=== PATIENT | female | born 1945 | race Caucasian/White ===

== ENCOUNTER → 2018-01-08 08:05 | Outpatient (CLI) | payer MEDICARE, OTHER, SELFPAY ==
[2018-01-08 10:54] LABS: Anion Gap 8 (5-15); BUN 13 mg/dL (7-18); BUN/Creat Ratio 16.4 RATIO (10-20); Calcium,Total 8.7 mg/dL (8.5-10.1); Chloride 107 mmol/L (98-107); Cholesterol 227 mg/dL (200); EST Glomerular Filtration Rate 76 mL/min (>60); Est Glom Filt Rate - Afr Amer 92 mL/min (>60); Glucose 98 mg/dL (74-106); High Density Lipoprotein 45 mg/dL; Potassium 4.1 mmol/L (3.5-5.1); Sodium Level 140 mmol/L (136-145); Thyroid Stim Hormone (TSH) 0.55 uIU/mL (0.358-3.74); Triglycerides 327 mg/dL; Very Low Density Lipoprotein 65 mg/dL (5-40)
== END ==
PROVIDERS: Family Provider Family Medicine; PCP Family Medicine; Visit Provider Family Medicine
DX: E03.9 Hypothyroidism, unspecified (principal); K58.9 Irritable bowel syndrome, unspecified; E78.00 Pure hypercholesterolemia, unspecified
CPT/HCPCS: 36415; 80048; 80061; 84443

== ENCOUNTER → 2019-01-18 08:31 | Outpatient (CLI) | payer MEDICARE, OTHER, SELFPAY ==
[2019-01-18 10:21] LABS: Anion Gap 6 (5-15); BUN 16 mg/dL (7-18); BUN/Creat Ratio 17.6 RATIO (10-20); Calcium,Total 8.9 mg/dL (8.5-10.1); Chloride 107 mmol/L (98-107); Cholesterol 245 mg/dL (200); Creatinine, Serum 0.91 mg/dL (0.55-1.02); EST Glomerular Filtration Rate 65 mL/min (>60); Est Glom Filt Rate - Afr Amer 79 mL/min (>60); Glucose 102 mg/dL (74-106); High Density Lipoprotein 45 mg/dL; Potassium 4.3 mmol/L (3.5-5.1); Sodium Level 140 mmol/L (136-145); Thyroid Stim Hormone (TSH) 1.12 uIU/mL (0.358-3.74); Triglycerides 215 mg/dL; Very Low Density Lipoprotein 43 mg/dL (5-40)
== END ==
PROVIDERS: Family Provider Family Medicine; PCP Family Medicine; Referring Provider Family Medicine; Visit Provider Family Medicine
DX: G43.909 Migraine, unspecified, not intractable, without status migrainosus (principal); E03.9 Hypothyroidism, unspecified; E78.00 Pure hypercholesterolemia, unspecified
CPT/HCPCS: 36415; 80048; 80061; 84443

== ENCOUNTER → 2019-02-25 | Outpatient (CLI) | payer MEDICARE, OTHER, SELFPAY ==
--- NOTE | 2019-02-25 12:57 | ECHOD_ITS ---
Reason For Study: MVP Procedure This was a 2D Doppler, Color Flow transthoracic echocardiogram. The exam was of adequate technical quality. Exam performed in department. Left Ventricle Normal LV size. Left ventricular systolic function is normal. The estimated ejection fraction is 65 %. No evidence for diastolic dysfunction. No regional wall motion abnormalities noted. Right Ventricle Normal RV size. Normal systolic function. Atria Normal left atrium. Normal right atrium. No doppler evidence for ASD. Mitral Valve There is no mitral annular calcification. Mild mitral valve prolapse, posterior leaflet. Mild (1+) eccentric mitral valve insufficiency. Tricuspid Valve Normal tricuspid valve. Mild tricuspid valve insufficiency. Right ventricular systolic pressure estimated to be 30 mmHg. Aortic Valve The aortic valve is not well visualized. Mild (1+) aortic valve insufficiency. Pulmonic Valve The pulmonic valve is not well visualized. Great Vessels Normal sized aortic root. Pericardium/Pleural No pericardial effusion. MMode/2D Measurements & Calculations LVIDd: 4.5 cm IVSd: 0.96 cm Ao root diam: 3.1 cm LVIDs: 2.9 cm LVPWd: 0.76 cm LA dimension: 3.5 cm RVDd: 3.1 cm FS: 37.2 % LAV(MOD-bp): 41.0 ml LA A4 area: 14.4 cm2 RA A4 area: 9.7 cm2 LAV(MOD-bp) Indexed: 23.3 ml/m2 LAV(MOD-sp2): 48.1 ml LAV(MOD-sp4): 33.9 ml Time Measurements MV dec time: 0.23 sec Doppler Measurements & Calculations MV E max volodymyr: 65.4 cm/sec Lat Peak E' Volodymyr: 8.8 cm/sec Med Peak E' Volodymyr: 6.5 cm/sec MV A max volodymyr: 68.3 cm/sec E/E' lat: 7.4 E/E' med: 10.1 MV E/A: 0.96 MV V2 max: 79.6 cm/sec MV P1/2t max volodymyr: 80.3 cm/sec Ao V2 max: 101.9 cm/sec MV max P.5 mmHg MV P1/2t: 83.7 msec Ao max P.2 mmHg MV V2 mean: 43.8 cm/sec MV dec slope: 280.8 cm/sec2 MV mean P.90 mmHg MVA(P1/2t): 2.6 cm2 MV V2 VTI: 30.3 cm AI max volodymyr: 401.8 cm/sec LV V1 max: 78.8 cm/sec MR max volodymyr: 551.0 cm/sec AI max P.6 mmHg LV V1 max P.5 mmHg MR max P.4 mmHg MR mean volodymyr: 405.7 cm/sec AI dec slope: 217.2 cm/sec2 MR mean P.0 mmHg AI P1/2t: 541.8 msec MR VTI: 210.0 cm PA V2 max: 79.6 cm/sec TR max volodymyr: 261.6 cm/sec TR max P.4 mmHg Interpretation Summary Left ventricular systolic function is normal. The estimated ejection fraction is 65 %. Mild mitral valve prolapse, posterior leaflet Mild (1+) eccentric mitral valve insufficiency. Mild tricuspid valve insufficiency. Mild (1+) aortic valve insufficiency. Right ventricular systolic pressure estimated to be 30 mmHg. No evidence for diastolic dysfunction. Ordering Physician: Massimo Marquez Referring Physician: Massimo Marquez Performed By: Italo Truong RCS
== END | disposition home or self-care (01) ==
LOC: CVS 12:53
PROVIDERS: Family Provider Family Medicine; PCP Family Medicine; Referring Provider Family Medicine; Visit Provider Family Medicine
DX: I34.1 Nonrheumatic mitral (valve) prolapse (principal)
CPT/HCPCS: 93306

== ENCOUNTER → 2019-08-13 | Outpatient (CLI) | payer MEDICARE, OTHER, SELFPAY ==
[2019-02-28 10:16] VITALS: BMI 24.0
[2019-08-13 12:38] LABS: Absolute Lymphocyte Count 2.07 X10^3/uL (0.83-4.51); Absolute Neutrophil Count 2.8 X10^3/uL (2.0-7.7); Basophil# 0.06 X10^3/uL; Basophil% 1.1 % (0-1); Eosinophil# 0.14 X10^3/uL; Eosinophils% 2.5 % (0-5); Hematocrit 42.9 % (37-47); Hemoglobin 13.7 g/dL (12.0-15.0); Lymphocyte # 2.07 X10^3/ul (4.0); Lymphocyte % 36.7 % (19-41); Mean Corp Hgb Conc 31.9 g/dL (32-36); Mean Corpuscular Hgb 29.5 pg (27.0-32.0); Mean Corpuscular Volume 92.3 fL (81-99); Mean Platelet Vol. 11.4 fl (6.2-12.0); Monocyte# 0.59 X10^3/uL; Monocyte% 10.5 % (0-10); NRBC Flagged by Analyzer 0 % (0-5); Neutrophil # 2.76 X10^3/uL (2.7-7.7); Neutrophil % 48.8 % (47-70); Platelet Count 167 K/mm3 (150-450); RBC Distribution Width CV 12.5 % (11.6-14.6); RBC Distribution Width SD 42.6 fl (35.1-43.9); Red Blood Count 4.65 M/mm3 (4.2-5.4); White Blood Count 5.6 K/mm3 (4.4-11.0)
[2019-08-13 12:48] LABS: Amphetamine Urine VISTA NEGATIVE (<1000 ng/mL); Barbiturate Urine VISTA NEGATIVE (< 200 ng/mL); Benzodiazepine Urine VISTA NEGATIVE (< 200 ng/mL); Cocaine Urine VISTA NEGATIVE (< 300 ng/mL); Ecstacy Urine VISTA NEGATIVE (< 500 ng/mL); Methadone Urine VISTA NEGATIVE (< 300 ng/mL); PCP Urine VISTA NEGATIVE (< 25 ng/mL); THC Urine VISTA NEGATIVE (< 50 ng/mL); Vista UDS pH Range 6
[2019-08-13 13:10] LABS: ALB/GLOB Ratio 1.1 RATIO (0.9-2.4); AST(SGOT) 13 U/L (15-37); Alanine Aminotransfer ALT/SGPT 21 U/L (13-56); Albumin, Serum 3.8 g/dL (3.2-5.0); Alkaline Phosphatase 87 U/L (45-117); Anion Gap 4 (5-15); BUN 13 mg/dL (7-18); BUN/Creat Ratio 15.4 RATIO (10-20); Calcium,Total 9.4 mg/dL (8.5-10.1); Chloride 106 mmol/L (98-107); Cholesterol 239 mg/dL (200); Creatinine, Serum 0.84 mg/dL (0.55-1.02); EST Glomerular Filtration Rate 70 mL/min (>60); Est Glom Filt Rate - Afr Amer 85 mL/min (>60); Globulin 3.6 g/dL (2.2-4.2); Glucose 92 mg/dL (74-106); High Density Lipoprotein 47 mg/dL; Potassium 4.6 mmol/L (3.5-5.1); Protein, Total 7.4 g/dL (6.4-8.2); Sodium Level 138 mmol/L (136-145); T4 Free Direct 1.93 ng/dL (0.76-1.46); Thyroid Stim Hormone (TSH) 0.03 uIU/mL (0.358-3.74); Triglycerides 320 mg/dL; Very Low Density Lipoprotein 64 mg/dL (5-40)
== END | disposition home or self-care (01) ==
LOC: MFPLAB 09:48
PROVIDERS: Family Provider Family Medicine; PCP Family Medicine; Referring Provider Family Medicine; Visit Provider Family Medicine
DX: E03.9 Hypothyroidism, unspecified (principal); E78.00 Pure hypercholesterolemia, unspecified; G47.00 Insomnia, unspecified
CPT/HCPCS: 36415; 80053; 80061; 80307; 84439; 84443; 85025

== ENCOUNTER → 2019-11-14 09:25 | Outpatient (CLI) | payer MEDICARE, OTHER, SELFPAY ==
[2019-09-02 09:35] VITALS: BMI 24.3
[2019-11-14 10:43] LABS: T4 Free Direct 1.58 ng/dL (0.76-1.46); Thyroid Stim Hormone (TSH) 0.19 uIU/mL (0.358-3.74)
== END ==
PROVIDERS: Family Provider Family Medicine; PCP Family Medicine; Referring Provider Family Medicine; Visit Provider Family Medicine
DX: E03.9 Hypothyroidism, unspecified (principal)
CPT/HCPCS: 36415; 84439; 84443

== ENCOUNTER → 2019-11-26 08:03 | Outpatient (CLI) | payer MEDICARE, OTHER, SELFPAY ==
[2019-09-02 09:35] VITALS: BMI 24.3
--- NOTE | 2019-11-26 08:12 | BI_ITS ---
MAMMOGRAPHY - BILATERAL SCREENING REASON FOR EXAM: Female, 74 years old. Routine annual screening examination. PERTINENT HISTORY: Non-contributory. TECHNIQUE: Digital bilateral breast gonsalo (3D mammographic acquisition) in the CC and MLO projections. 2-D mediolateral oblique (MLO) and craniocaudad (CC) views of both breasts were obtained. CAD: Full Field Digital Mammography with Computer Added Detection was performed. COMPARISON: Comparison is made with prior abdomen examination dated July 31, 2018. FINDINGS: Breast Composition: There are scattered areas of fibroglandular density. There are no dominant masses or suspicious calcifications. No other significant abnormalities are identified. There has been no significant change since the prior study. BI/SCREEN MAMM (CAD) W/GONSALO BILAT IMPRESSION: Stable bilateral screening mammogram. Yearly follow-up mammogram recommended. (A) ASSESSMENT CATEGORY: BIRADS Category 1: Negative. A letter regarding these results will be sent to the patient by the facility within 30 days. Approximately 10% of breast cancers are not detected by mammography. A normal mammogram should not delay biopsy of a clinically suspicious abnormality. [id number] Electronically Signed: David Garcia, at 11:03 EST , Service support ,
== END ==
PROVIDERS: Family Provider Family Medicine; PCP Family Medicine; Referring Provider Family Medicine; Visit Provider Family Medicine
DX: Z12.31 Encounter for screening mammogram for malignant neoplasm of breast (principal)
CPT/HCPCS: 77063; 77067

== ENCOUNTER → 2020-03-17 | Outpatient (CLI) | payer MEDICARE, OTHER, SELFPAY ==
[2019-09-02 09:35] VITALS: BMI 24.3
[2020-03-17 10:15] LABS: Absolute Lymphocyte Count 2.06 X10^3/uL (0.83-4.51); Absolute Neutrophil Count 2.7 X10^3/uL (2.0-7.7); Basophil# 0.05 X10^3/uL; Basophil% 0.9 % (0-1); Eosinophil# 0.16 X10^3/uL; Eosinophils% 2.9 % (0-5); Hematocrit 40.9 % (37-47); Hemoglobin 13.4 g/dL (12.0-15.0); Lymphocyte # 2.06 X10^3/ul (4.0); Lymphocyte % 37.2 % (19-41); Mean Corp Hgb Conc 32.8 g/dL (32-36); Mean Corpuscular Hgb 30.5 pg (27.0-32.0); Mean Platelet Vol. 11.5 fl (6.2-12.0); Monocyte# 0.57 X10^3/uL; Monocyte% 10.3 % (0-10); NRBC Flagged by Analyzer 0 % (0-5); Neutrophil # 2.68 X10^3/uL (2.7-7.7); Neutrophil % 48.3 % (47-70); Platelet Count 218 K/mm3 (150-450); RBC Distribution Width CV 12.3 % (11.6-14.6); RBC Distribution Width SD 42.4 fl (35.1-43.9); White Blood Count 5.5 K/mm3 (4.4-11.0)
[2020-03-17 10:39] LABS: ALB/GLOB Ratio 1.1 RATIO (0.9-2.4); AST(SGOT) 18 U/L (15-37); Alanine Aminotransfer ALT/SGPT 24 U/L (13-56); Albumin, Serum 3.7 g/dL (3.2-5.0); Alkaline Phosphatase 86 U/L (45-117); Anion Gap 3 (5-15); BUN 17 mg/dL (7-18); BUN/Creat Ratio 19.7 RATIO (10-20); Chloride 111 mmol/L (98-107); Cholesterol 247 mg/dL (200); Creatinine, Serum 0.86 mg/dL (0.55-1.02); EST Glomerular Filtration Rate 69 mL/min (>60); Est Glom Filt Rate - Afr Amer 83 mL/min (>60); Globulin 3.3 g/dL (2.2-4.2); Glucose 105 mg/dL (74-106); High Density Lipoprotein 45 mg/dL; Potassium 4.1 mmol/L (3.5-5.1); Sodium Level 141 mmol/L (136-145); Thyroid Stim Hormone (TSH) 0.43 uIU/mL (0.358-3.74); Triglycerides 296 mg/dL; Very Low Density Lipoprotein 59 mg/dL (5-40)
== END | disposition home or self-care (01) ==
LOC: MFPLAB 08:28
PROVIDERS: PCP Family Medicine; Visit Provider Family Medicine
DX: E78.00 Pure hypercholesterolemia, unspecified (principal); E03.9 Hypothyroidism, unspecified
CPT/HCPCS: 36415; 80053; 80061; 84439; 84443; 85025

== ENCOUNTER → 2020-09-15 08:26 | Outpatient (CLI) | payer MEDICARE, OTHER, SELFPAY ==
[2020-08-31 10:40] VITALS: BMI 27.1
[2020-09-15 10:22] LABS: AST(SGOT) 21 U/L (15-37); Alanine Aminotransfer ALT/SGPT 31 U/L (13-56); Albumin, Serum 3.6 g/dL (3.2-5.0); Alkaline Phosphatase 73 U/L (45-117); Anion Gap 5 (5-15); BUN 15 mg/dL (7-18); BUN/Creat Ratio 14.7 RATIO (10-20); Calcium,Total 8.9 mg/dL (8.5-10.1); Chloride 109 mmol/L (98-107); Cholesterol 234 mg/dL (200); Creatinine, Serum 1.02 mg/dL (0.55-1.02); EST Glomerular Filtration Rate 56 mL/min (>60); Est Glom Filt Rate - Afr Amer 68 mL/min (>60); Globulin 3.5 g/dL (2.2-4.2); Glucose 104 mg/dL (74-106); High Density Lipoprotein 45 mg/dL; Potassium 4.5 mmol/L (3.5-5.1); Protein, Total 7.1 g/dL (6.4-8.2); Sodium Level 140 mmol/L (136-145); T4 Free Direct 1.39 ng/dL (0.76-1.46); Thyroid Stim Hormone (TSH) 2.65 uIU/mL (0.358-3.74); Triglycerides 270 mg/dL; Very Low Density Lipoprotein 54 mg/dL (5-40)
[2020-09-16 09:19] LABS: Hemoglobin A1c 5.6 % (3.8-5.6)
== END ==
PROVIDERS: PCP Family Medicine; Referring Provider Family Medicine; Visit Provider Family Medicine
DX: E78.00 Pure hypercholesterolemia, unspecified (principal); E03.9 Hypothyroidism, unspecified; R73.09 Other abnormal glucose
CPT/HCPCS: 36415; 80053; 80061; 83036; 84439; 84443

== ENCOUNTER → 2020-09-28 11:23 | Outpatient (CLI) | payer MEDICARE, OTHER, SELFPAY ==
[2020-08-31 10:40] VITALS: BMI 27.1
== END ==
PROVIDERS: PCP Family Medicine; Visit Provider Family Medicine
DX: R69 Illness, unspecified (principal)

== ENCOUNTER → 2020-12-10 09:22 | Outpatient (CLI) | payer MEDICARE, OTHER, SELFPAY ==
[2020-08-31 10:40] VITALS: BMI 27.1
[2020-12-10 11:20] LABS: ALB/GLOB Ratio 1.1 RATIO (0.9-2.4); AST(SGOT) 20 U/L (15-37); Alanine Aminotransfer ALT/SGPT 33 U/L (13-56); Albumin, Serum 3.7 g/dL (3.2-5.0); Alkaline Phosphatase 64 U/L (45-117); Anion Gap 7 (5-15); BUN 13 mg/dL (7-18); Calcium,Total 8.8 mg/dL (8.5-10.1); Chloride 104 mmol/L (98-107); Cholesterol 183 mg/dL (200); EST Glomerular Filtration Rate 58 mL/min (>60); Est Glom Filt Rate - Afr Amer 70 mL/min (>60); Globulin 3.4 g/dL (2.2-4.2); Glucose 88 mg/dL (74-106); High Density Lipoprotein 40 mg/dL; Potassium 3.9 mmol/L (3.5-5.1); Protein, Total 7.1 g/dL (6.4-8.2); Sodium Level 138 mmol/L (136-145); T4 Free Direct 1.64 ng/dL (0.76-1.46); Thyroid Stim Hormone (TSH) 1.47 uIU/mL (0.358-3.74); Triglycerides 318 mg/dL; Very Low Density Lipoprotein 64 mg/dL (5-40)
== END ==
PROVIDERS: PCP Family Medicine; Referring Provider Family Medicine; Visit Provider Family Medicine
DX: E03.9 Hypothyroidism, unspecified (principal); E78.00 Pure hypercholesterolemia, unspecified
CPT/HCPCS: 36415; 80053; 80061; 84439; 84443

== ENCOUNTER → 2021-03-17 08:34 | Outpatient (CLI) | payer MEDICARE, OTHER, SELFPAY ==
[2020-08-31 10:40] VITALS: BMI 27.1
[2021-03-17 10:24] LABS: Absolute Lymphocyte Count 2.63 X10^3/uL (0.83-4.51); Absolute Neutrophil Count 2.5 X10^3/uL (2.0-7.7); Basophil# 0.07 X10^3/uL; Basophil% 1.1 % (0-1); Eosinophil# 0.26 X10^3/uL; Eosinophils% 4.2 % (0-5); Hematocrit 41.2 % (37-47); Hemoglobin 13.4 g/dL (12.0-15.0); Lymphocyte # 2.63 X10^3/ul (0.83-4.51); Lymphocyte % 42.9 % (19-41); Mean Corp Hgb Conc 32.5 g/dL (32-36); Mean Corpuscular Hgb 30.6 pg (27.0-32.0); Mean Corpuscular Volume 94.1 fL (81-99); Mean Platelet Vol. 11.3 fl (6.2-12.0); Monocyte# 0.68 X10^3/uL; Monocyte% 11.1 % (0-10); NRBC Flagged by Analyzer 0 % (0-5); Neutrophil # 2.47 X10^3/uL (2.7-7.7); Neutrophil % 40.4 % (47-70); Platelet Count 323 K/mm3 (150-450); RBC Distribution Width CV 12.7 % (11.6-14.6); RBC Distribution Width SD 43.9 fl (35.1-43.9); Red Blood Count 4.38 M/mm3 (4.2-5.4); White Blood Count 6.1 K/mm3 (4.4-11.0)
[2021-03-17 10:38] LABS: Color, Urine Yellow (Yellow); Glucose, Dipstick Normal (Normal); Ketone-Dipstick 5 mg/dl (Negative); Leukocyte Esterase-Dipstick 500 /ul (Negative); Nitrite-Dipstick Positive (Negative); Occult Blood-Urine 10 /ul (Negative); Protein-Dipstick Negative (Negative); Urine Clarity Sl. Cloudy (Clear); Urine Urobilinogen Normal (Normal)
[2021-03-17 10:41] LABS: Urine Bilirubin Dipstick 1 mg/dL (Negative)
[2021-03-17 10:43] LABS: ALB/GLOB Ratio 1.2 RATIO (0.9-2.4); AST(SGOT) 32 U/L (15-37); Alanine Aminotransfer ALT/SGPT 36 U/L (13-56); Albumin, Serum 3.8 g/dL (3.2-5.0); Alkaline Phosphatase 53 U/L (45-117); Anion Gap 6 (5-15); BUN 17 mg/dL (7-18); Calcium,Total 8.8 mg/dL (8.5-10.1); Chloride 107 mmol/L (98-107); Cholesterol 189 mg/dL (200); Creatinine, Serum 1.06 mg/dL (0.55-1.02); EST Glomerular Filtration Rate 54 mL/min (>60); Est Glom Filt Rate - Afr Amer 65 mL/min (>60); Globulin 3.3 g/dL (2.2-4.2); Glucose 99 mg/dL (74-106); High Density Lipoprotein 39 mg/dL; Potassium 4.2 mmol/L (3.5-5.1); Protein, Total 7.1 g/dL (6.4-8.2); Sodium Level 140 mmol/L (136-145); T4 Free Direct 1.05 ng/dL (0.76-1.46); Triglycerides 228 mg/dL; Very Low Density Lipoprotein 46 mg/dL (5-40)
[2021-03-17 10:47] LABS: Bacteria 2+ /hpf (None Seen); Hyaline Cast 0-5 SEEN /lpf (0-5); Mucous, Urine 1+ /hpf (<or=2+); Red Blood Cells-Urine 0-5 SEEN /hpf (0-5); Squamous Epithelial Cells - UA 5-10 SEEN /hpf (5-10); White Blood Cells 25-50 SEEN /hpf (0-5)
[2021-03-17 10:55] LABS: Protein, Urine (Random) 18.7 mg/dL (<11.9); Protein:Creat Ratio 75 mg/g CRE (0-200)
== END ==
PROVIDERS: PCP Family Medicine; Referring Provider Family Medicine; Visit Provider Family Medicine
DX: E03.9 Hypothyroidism, unspecified (principal); E78.00 Pure hypercholesterolemia, unspecified; R94.4 Abnormal results of kidney function studies
CPT/HCPCS: 36415; 80053; 80061; 81001; 82570; 84100; 84156; 84439; 84443; 85025

== ENCOUNTER → 2021-10-18 08:53 | Outpatient (CLI) | payer MEDICARE, OTHER, SELFPAY ==
[2021-10-18 09:03] LABS: Mucous, Urine 0 SEEN /hpf (<or=2+); Red Blood Cells-Urine 0 SEEN /hpf (0-5)
[2021-10-18 09:59] LABS: Absolute Lymphocyte Count 2.06 X10^3/uL (0.83-4.51); Absolute Neutrophil Count 2.7 X10^3/uL (2.0-7.7); Basophil# 0.05 X10^3/uL; Basophil% 0.9 % (0-1); Eosinophil# 0.24 X10^3/uL; Eosinophils% 4.2 % (0-5); Hematocrit 38.7 % (37-47); Hemoglobin 13.1 g/dL (12.0-15.0); Lymphocyte # 2.06 X10^3/ul (0.83-4.51); Lymphocyte % 36.2 % (19-41); Mean Corp Hgb Conc 33.9 g/dL (32-36); Mean Corpuscular Volume 91.7 fL (81-99); Mean Platelet Vol. 10.8 fl (6.2-12.0); Monocyte# 0.57 X10^3/uL; NRBC Flagged by Analyzer 0 % (0-5); Neutrophil # 2.74 X10^3/uL (2.7-7.7); Neutrophil % 48.2 % (47-70); Platelet Count 306 K/mm3 (150-450); RBC Distribution Width SD 44.2 fl (35.1-43.9); Red Blood Count 4.22 M/mm3 (4.2-5.4); White Blood Count 5.7 K/mm3 (4.4-11.0)
[2021-10-18 10:16] LABS: Protein, Urine (Random) < 6.0 mg/dL (<11.9)
[2021-10-18 10:25] LABS: Color, Urine Yellow (Yellow); Glucose, Dipstick Normal (Normal); Ketone-Dipstick Negative (Negative); Leukocyte Esterase-Dipstick 100 /ul (Negative); Nitrite-Dipstick Negative (Negative); Occult Blood-Urine Negative /ul (Negative); Protein-Dipstick Negative (Negative); Specific Gravity, Urine 1.005 (1.002-1.030); Urine Bilirubin Dipstick Negative (Negative); Urine Clarity Clear (Clear); Urine Urobilinogen Normal (Normal); Urine pH 6.5 (5.0 - 8.0)
[2021-10-18 10:49] LABS: PTHIN 90.8 pg/mL (18.4-80.1)
[2021-10-18 10:51] LABS: Vitamin D,25 Hydroxy 34.2 ng/mL
[2021-10-18 11:00] LABS: AST(SGOT) 16 U/L (15-37); Alanine Aminotransfer ALT/SGPT 19 U/L (13-56); Albumin, Serum 3.4 g/dL (3.2-5.0); Alkaline Phosphatase 80 U/L (45-117); Anion Gap 6 (5-15); BUN 11 mg/dL (7-18); BUN/Creat Ratio 13.5 RATIO (10-20); Calcium,Total 9.1 mg/dL (8.5-10.1); Chloride 105 mmol/L (98-107); Cholesterol 238 mg/dL (200); Creatinine, Serum 0.81 mg/dL (0.55-1.02); EST Glomerular Filtration Rate 73 mL/min (>60); Est Glom Filt Rate - Afr Amer 88 mL/min (>60); Globulin 3.5 g/dL (2.2-4.2); Glucose 103 mg/dL (74-106); High Density Lipoprotein 43 mg/dL; Phosphorus 2.8 mg/dL (2.5-4.9); Potassium 3.8 mmol/L (3.5-5.1); Protein, Total 6.9 g/dL (6.4-8.2); Sodium Level 137 mmol/L (136-145); T4 Free Direct 1.59 ng/dL (0.76-1.46); Thyroid Stim Hormone (TSH) 1.01 uIU/mL (0.358-3.74); Triglycerides 234 mg/dL; Very Low Density Lipoprotein 47 mg/dL (5-40)
[2021-10-18 21:56] LABS: Bacteria 2+ /hpf (None Seen); Squamous Epithelial Cells - UA 5-10 SEEN /hpf (5-10); White Blood Cells 0-5 SEEN /hpf (0-5)
== END ==
PROVIDERS: PCP Family Medicine; Referring Provider Family Medicine; Visit Provider Family Medicine
DX: N18.30 Chronic kidney disease, stage 3 unspecified (principal); E78.00 Pure hypercholesterolemia, unspecified; E03.9 Hypothyroidism, unspecified
CPT/HCPCS: 36415; 80053; 80061; 81001; 82306; 82570; 83970; 84100; 84156; 84439; 84443; 85025

== ENCOUNTER 2022-01-17 09:11 | Outpatient (CLI) | payer MEDICARE, OTHER, SELFPAY ==
[2022-01-17 10:32] LABS: Absolute Lymphocyte Count 2.58 X10^3/uL (0.83-4.51); Absolute Neutrophil Count 2.9 X10^3/uL (2.0-7.7); Basophil# 0.07 X10^3/uL; Basophil% 1.1 % (0-1); Eosinophil# 0.19 X10^3/uL; Hematocrit 43.9 % (37-47); Hemoglobin 14.8 g/dL (12.0-15.0); Lymphocyte # 2.58 X10^3/ul (0.83-4.51); Lymphocyte % 40.4 % (19-41); Mean Corp Hgb Conc 33.7 g/dL (32-36); Mean Platelet Vol. 10.8 fl (6.2-12.0); Monocyte# 0.63 X10^3/uL; Monocyte% 9.9 % (0-10); NRBC Flagged by Analyzer 0 % (0-5); Neutrophil # 2.88 X10^3/uL (2.7-7.7); Neutrophil % 45.1 % (47-70); Platelet Count 325 K/mm3 (150-450); RBC Distribution Width CV 12.5 % (11.6-14.6); RBC Distribution Width SD 42.4 fl (35.1-43.9); Red Blood Count 4.77 M/mm3 (4.2-5.4); White Blood Count 6.4 K/mm3 (4.4-11.0)
[2022-01-17 11:01] LABS: Vitamin D,25 Hydroxy 42.3 ng/mL
[2022-01-17 11:05] LABS: AST(SGOT) 15 U/L (15-37); Alanine Aminotransfer ALT/SGPT 18 U/L (13-56); Albumin, Serum 3.6 g/dL (3.2-5.0); Alkaline Phosphatase 85 U/L (45-117); Anion Gap 4 (5-15); BUN 16 mg/dL (7-18); BUN/Creat Ratio 18.5 RATIO (10-20); Calcium,Total 8.9 mg/dL (8.5-10.1); Chloride 103 mmol/L (98-107); Cholesterol 250 mg/dL (200); Creatinine, Serum 0.86 mg/dL (0.55-1.02); EST Glomerular Filtration Rate 68 mL/min (>60); Est Glom Filt Rate - Afr Amer 82 mL/min (>60); Globulin 3.6 g/dL (2.2-4.2); Glucose 94 mg/dL (74-106); High Density Lipoprotein 44 mg/dL; Potassium 4.4 mmol/L (3.5-5.1); Protein, Total 7.2 g/dL (6.4-8.2); Sodium Level 135 mmol/L (136-145); T4 Free Direct 1.67 ng/dL (0.76-1.46); Triglycerides 241 mg/dL; Very Low Density Lipoprotein 48 mg/dL (5-40)
== END 2022-01-17 23:59 | disposition home or self-care (01) ==
LOC: MFPLAB 09:13
PROVIDERS: PCP Family Medicine; Visit Provider Family Medicine
DX: N18.30 Chronic kidney disease, stage 3 unspecified (principal); E03.9 Hypothyroidism, unspecified; E78.00 Pure hypercholesterolemia, unspecified; E55.9 Vitamin D deficiency, unspecified
CPT/HCPCS: 36415; 80053; 80061; 82306; 84439; 84443; 85025

== ENCOUNTER 2022-01-23 09:24 | Outpatient (CLI) | payer MEDICARE, OTHER, SELFPAY ==
[2022-01-23 09:13] VITALS: BP 122/73; PULSE 87; RESP 16; TEMP 35.9; O2SAT 100; BMI 25.7
--- NOTE | 2022-01-23 09:29 | RAD_ITS ---
STUDY: X-RAY CHEST REASON FOR EXAM: Female, 76 years old. cough TECHNIQUE: PA and lateral views of the chest. COMPARISON: None. FINDINGS: The lungs are clear and expanded. There is no demonstrated pleural abnormality. Normal size heart. Normal mediastinum and leonela. Normal visualized pulmonary arteries. Normal visualized aortic arch and descending thoracic aorta. Normal visualized thoracic spine. Normal visualized ribs, clavicles, and shoulders. There is no demonstrated abnormality of the visualized soft tissue structures of the upper abdomen. RAD/Chest PA and Lateral IMPRESSION: Normal x-ray examination of the chest. Electronically Signed: Mauricio Rhoades MD at 9:49 EDT ,
== END 2022-01-23 23:59 | disposition home or self-care (01) ==
LOC: RAD 09:29
PROVIDERS: PCP Family Medicine; Visit Provider Physician Assistant
DX: R05.9 Cough, unspecified (principal)
CPT/HCPCS: 71046

== ENCOUNTER → 2022-04-18 | Outpatient (CLI) | payer MEDICARE, OTHER, SELFPAY | END | disposition home or self-care (01) | PROVIDERS: PCP Family Medicine; Referring Provider Family Medicine; Visit Provider Family Medicine | DX: U07.1 COVID-19 (principal) | CPT/HCPCS: 87635; U0003; U0005 ==

== ENCOUNTER → 2022-05-02 | Outpatient (CLI) | payer MEDICARE, OTHER, SELFPAY ==
[2022-05-02 12:49] LABS: Absolute Lymphocyte Count 2.41 X10^3/uL (0.83-4.51); Absolute Neutrophil Count 3.2 X10^3/uL (2.0-7.7); Basophil# 0.05 X10^3/uL; Basophil% 0.8 % (0-1); Eosinophil# 0.18 X10^3/uL; Eosinophils% 2.8 % (0-5); Hemoglobin 13.3 g/dL (12.0-15.0); Lymphocyte # 2.41 X10^3/ul (0.83-4.51); Lymphocyte % 37.1 % (19-41); Mean Corp Hgb Conc 32.4 g/dL (32-36); Mean Corpuscular Hgb 30.7 pg (27.0-32.0); Mean Corpuscular Volume 94.7 fL (81-99); Mean Platelet Vol. 11.6 fl (6.2-12.0); Monocyte# 0.64 X10^3/uL; Monocyte% 9.9 % (0-10); NRBC Flagged by Analyzer 0 % (0-5); Neutrophil # 3.19 X10^3/uL (2.7-7.7); Neutrophil % 49.1 % (47-70); Platelet Count 286 K/mm3 (150-450); RBC Distribution Width CV 13.2 % (11.6-14.6); RBC Distribution Width SD 46.3 fl (35.1-43.9); Red Blood Count 4.33 M/mm3 (4.2-5.4); White Blood Count 6.5 K/mm3 (4.4-11.0)
[2022-05-02 12:51] LABS: Vitamin D,25 Hydroxy 55.4 ng/mL
[2022-05-02 13:22] LABS: ALB/GLOB Ratio 1.1 RATIO (0.9-2.4); AST(SGOT) 14 U/L (15-37); Alanine Aminotransfer ALT/SGPT 19 U/L (13-56); Albumin, Serum 3.8 g/dL (3.2-5.0); Alkaline Phosphatase 77 U/L (45-117); Anion Gap 8 (5-15); BUN 15 mg/dL (7-18); BUN/Creat Ratio 15.2 RATIO (10-20); Calcium,Total 9.3 mg/dL (8.5-10.1); Chloride 106 mmol/L (98-107); Creatinine, Serum 0.99 mg/dL (0.55-1.02); EST Glomerular Filtration Rate 58 mL/min (>60); Est Glom Filt Rate - Afr Amer 71 mL/min (>60); Globulin 3.6 g/dL (2.2-4.2); Glucose 99 mg/dL (74-106); Potassium 4.7 mmol/L (3.5-5.1); Protein, Total 7.4 g/dL (6.4-8.2); Sodium Level 137 mmol/L (136-145); T4 Free Direct 1.07 ng/dL (0.76-1.46)
== END | disposition home or self-care (01) ==
LOC: MFPLAB 10:31
PROVIDERS: PCP Family Medicine; Visit Provider Family Medicine
DX: E03.9 Hypothyroidism, unspecified (principal); G47.00 Insomnia, unspecified; E55.9 Vitamin D deficiency, unspecified
CPT/HCPCS: 36415; 80053; 82306; 84439; 85025

== ENCOUNTER → 2022-05-11 | Outpatient (CLI) | payer MEDICARE, OTHER, SELFPAY ==
[2022-05-11 09:58] LABS: Anion Gap 7 (5-15); BUN 10 mg/dL (7-18); BUN/Creat Ratio 11.9 RATIO (10-20); Chloride 106 mmol/L (98-107); Creatinine, Serum 0.84 mg/dL (0.55-1.02); EST Glomerular Filtration Rate 71 mL/min (>60); Est Glom Filt Rate - Afr Amer 85 mL/min (>60); Glucose 101 mg/dL (74-106); Potassium 4.3 mmol/L (3.5-5.1); Sodium Level 141 mmol/L (136-145)
== END | disposition home or self-care (01) ==
LOC: MFPLAB 08:07
PROVIDERS: PCP Family Medicine; Visit Provider Family Medicine
DX: N18.9 Chronic kidney disease, unspecified (principal)
CPT/HCPCS: 36415; 80048

== ENCOUNTER → 2022-09-06 | Outpatient (CLI) | payer MEDICARE, OTHER, SELFPAY ==
--- NOTE | 2022-09-06 07:58 | BI_ITS ---
MAMMOGRAPHY - BILATERAL SCREENING REASON FOR EXAM: Female, 77 years old. Routine annual screening examination. PERTINENT HISTORY: Non-contributory. TECHNIQUE: Digital bilateral breast gonsalo (3D mammographic acquisition) in the CC and MLO projections. 2-D mediolateral oblique (MLO) and craniocaudad (CC) views of both breasts were obtained. CAD: Full Field Digital Mammography with Computer Added Detection was performed. COMPARISON: Comparison is made with prior study dated 07/27/2020 and 05/12/2015. FINDINGS: Breast Composition: There are scattered areas of fibroglandular density. There are no dominant masses or suspicious calcifications. No other significant abnormalities are identified. There has been no significant change since the prior study. BI/SCRN MAMM (CAD)W/GONSALO BILAT IMPRESSION: Stable bilateral screening mammogram. Yearly follow-up mammogram recommended. (A) ASSESSMENT CATEGORY: BIRADS Category 1: Negative. A letter regarding these results will be sent to the patient by the facility within 30 days. Approximately 10% of breast cancers are not detected by mammography. A normal mammogram should not delay biopsy of a clinically suspicious abnormality. [id number] Electronically Signed: David Garcia MD at 10:20 EDT ,
== END | disposition home or self-care (01) ==
LOC: OPBI 07:56
PROVIDERS: PCP Family Medicine; Visit Provider Nurse Practitioner Family
DX: Z12.31 Encounter for screening mammogram for malignant neoplasm of breast (principal)
CPT/HCPCS: 77063; 77067

== ENCOUNTER → 2022-11-02 | Outpatient (CLI) | payer MEDICARE, OTHER, SELFPAY ==
--- NOTE | 2022-11-02 11:34 | RAD_ITS ---
STUDY: X-RAY - LUMBAR SPINE REASON FOR EXAM: Female, 77 years old. PAIN TECHNIQUE: XR Spine Lumbar 2 or 3 Views COMPARISON: None FINDINGS: Normal lumbar lordosis. There is no substantial scoliosis. There is a normal alignment of the vertebrae. There is multilevel endplate spondylosis of the lumbar vertebrae. There is multi-level degenerative disc disease with multi-level disc space narrowing. There are atherosclerotic vascular calcifications. The soft tissue structures are unremarkable. RAD/Lumbar Spine 2 or 3 Views IMPRESSION: Degenerative changes of the spine, as detailed above. Electronically Signed: Qamar Carreon MD at 17:53 EST ,
== END | disposition home or self-care (01) ==
PROVIDERS: PCP Family Medicine; Referring Provider Family Medicine; Visit Provider Family Medicine
DX: M54.50 Low back pain, unspecified (principal)
CPT/HCPCS: 72100

== ENCOUNTER → 2023-03-03 | Outpatient (CLI) | payer MEDICARE, OTHER, SELFPAY ==
[2023-03-03 15:42] LABS: Absolute Lymphocyte Count 3.09 X10^3/uL (0.83-4.51); Absolute Neutrophil Count 4.2 X10^3/uL (2.0-7.7); Basophil# 0.06 X10^3/uL; Basophil% 0.7 % (0-1); Eosinophil# 0.21 X10^3/uL; Eosinophils% 2.5 % (0-5); Hemoglobin 13.1 g/dL (12.0-15.0); Lymphocyte # 3.09 X10^3/ul (0.83-4.51); Lymphocyte % 37.1 % (19-41); Mean Corpuscular Volume 96.9 fL (81-99); Mean Platelet Vol. 10.3 fl (6.2-12.0); Monocyte# 0.72 X10^3/uL; Monocyte% 8.7 % (0-10); NRBC Flagged by Analyzer 0 % (0-5); Neutrophil # 4.22 X10^3/uL (2.7-7.7); Neutrophil % 50.8 % (47-70); Platelet Count 321 K/mm3 (150-450); RBC Distribution Width CV 13.6 % (11.6-14.6); RBC Distribution Width SD 48.6 fl (35.1-43.9); Red Blood Count 4.23 M/mm3 (4.2-5.4); White Blood Count 8.3 K/mm3 (4.4-11.0)
[2023-03-03 15:45] LABS: Color, Urine Yellow (Yellow); Glucose, Dipstick Normal (Normal); Ketone-Dipstick Negative (Negative); Leukocyte Esterase-Dipstick 100 /ul (Negative); Nitrite-Dipstick Positive (Negative); Occult Blood-Urine 10 /ul (Negative); Protein-Dipstick Negative (Negative); Specific Gravity, Urine 1.015 (1.002-1.030); Urine Clarity Sl. Cloudy (Clear); Urine Urobilinogen Normal (Normal)
[2023-03-03 16:02] LABS: Protein, Urine (Random) 10.7 mg/dL (<11.9); Protein:Creat Ratio 76 mg/g CRE (0-200)
[2023-03-03 16:03] LABS: Urine Bilirubin Dipstick 1 mg/dL (Negative)
[2023-03-03 16:08] LABS: Vitamin D,25 Hydroxy 64.8 ng/mL
[2023-03-03 16:22] LABS: AST(SGOT) 11 U/L (15-37); Alanine Aminotransfer ALT/SGPT 15 U/L (13-56); Albumin, Serum 3.8 g/dL (3.2-5.0); Alkaline Phosphatase 100 U/L (45-117); Anion Gap 5 (5-15); BUN 19 mg/dL (7-18); BUN/Creat Ratio 18.8 RATIO (10-20); Calcium,Total 9.2 mg/dL (8.5-10.1); Chloride 105 mmol/L (98-107); Cholesterol 315 mg/dL (200); Creatinine, Serum 1.01 mg/dL (0.55-1.02); EST Glomerular Filtration Rate 57 mL/min (>60); Est Glom Filt Rate - Afr Amer 69 mL/min (>60); Globulin 3.8 g/dL (2.2-4.2); Glucose 91 mg/dL (74-106); High Density Lipoprotein 56 mg/dL; Potassium 4.5 mmol/L (3.5-5.1); Protein, Total 7.6 g/dL (6.4-8.2); Sodium Level 135 mmol/L (136-145); T4 Free Direct 1.05 ng/dL (0.76-1.46); Triglycerides 214 mg/dL; Very Low Density Lipoprotein 43 mg/dL (5-40)
== END | disposition home or self-care (01) ==
LOC: MFPLAB 11:40
PROVIDERS: PCP Family Medicine; Referring Provider Family Medicine; Visit Provider Family Medicine
DX: N39.0 Urinary tract infection, site not specified (principal); N18.9 Chronic kidney disease, unspecified; E03.9 Hypothyroidism, unspecified; E78.00 Pure hypercholesterolemia, unspecified; E55.9 Vitamin D deficiency, unspecified
CPT/HCPCS: 36415; 80053; 80061; 81002; 82306; 82570; 84156; 84439; 84443; 85025; 87077; 87086; 87088; 87186

== ENCOUNTER 2023-06-07 10:43 | Outpatient (CLI) | payer MEDICARE, OTHER, SELFPAY ==
[2023-06-07 12:01] LABS: Bacteria 0 SEEN /hpf (None Seen); Mucous, Urine 0 SEEN /hpf (<or=2+); Red Blood Cells-Urine 0 SEEN /hpf (0-5); Squamous Epithelial Cells - UA 0 SEEN /hpf (5-10); White Blood Cells 0 SEEN /hpf (0-5)
[2023-06-07 14:08] LABS: Color, Urine Yellow (Yellow); Glucose, Dipstick Normal (Normal); Ketone-Dipstick Negative (Negative); Leukocyte Esterase-Dipstick 100 /ul (Negative); Nitrite-Dipstick Negative (Negative); Occult Blood-Urine 10 /ul (Negative); Protein-Dipstick Negative (Negative); Urine Bilirubin Dipstick Negative (Negative); Urine Clarity Clear (Clear); Urine Urobilinogen Normal (Normal)
== END 2023-06-07 23:59 | disposition home or self-care (01) ==
LOC: LABSPEC 10:44
PROVIDERS: PCP Family Medicine; Referring Provider Family Medicine; Visit Provider Family Medicine
DX: N89.8 Other specified noninflammatory disorders of vagina (principal); R39.9 Unspecified symptoms and signs involving the genitourinary system
CPT/HCPCS: 81001; 87086; 87088

== ENCOUNTER → 2023-06-12 | Outpatient (CLI) | payer MEDICARE, OTHER, SELFPAY ==
--- NOTE | 2023-06-12 08:04 | RAD_ITS ---
INDICATION: evaluate for recto-vaginal fistula EXAMINATION/TECHNIQUE: Single contrast Gastrografin enema was performed. Total Fluoroscopic Time: 1 minute and 12 seconds AND number of Fluoroscopic Images: 12 OR Radiation dosage index: COMPARISON: No relevant prior comparison study available FINDINGS: Limited Gastrografin enema was performed. On the geotechnician film, moderate amount of fecal material is seen in the colon. Contrast was inserted retrograde through the rectum. There is evidence of sigmoid diverticulosis. No radiographic evidence of diverticulitis. There is no evidence of rectovaginal fistula at this time. RAD/Barium Enema No Air Cont IMPRESSION: No evidence of rectovaginal fistula at this time. Sigmoid diverticulosis. Electronically Signed: David Garcia MD at 9:42 EDT ,
== END | disposition home or self-care (01) ==
LOC: RAD 08:03
PROVIDERS: PCP Family Medicine; Referring Provider Family Medicine; Visit Provider Family Medicine
DX: N89.8 Other specified noninflammatory disorders of vagina (principal)
CPT/HCPCS: 74270

== ENCOUNTER → 2023-06-22 | Outpatient (CLI) | payer MEDICARE, OTHER, SELFPAY | END | disposition home or self-care (01) | LOC: LABSPEC 16:32 | PROVIDERS: PCP Family Medicine; Referring Provider Nurse Practitioner Women's Health; Visit Provider Nurse Practitioner Women's Health | DX: R30.0 Dysuria (principal) | CPT/HCPCS: 87070; 87205 ==

== ENCOUNTER → 2023-06-28 | Outpatient (CLI) | payer MEDICARE, OTHER, SELFPAY ==
--- NOTE | 2023-06-28 12:20 | US_ITS ---
EXAM: US PELVIS TRANSVAGINAL CLINICAL INDICATION: pelvic mass -- complete hysterectomy, bilateral oophorectomy 25 yrs ago TECHNIQUE: Transvaginal pelvic ultrasound was performed with grayscale and color Doppler imaging. Transvaginal imaging was used for better evaluation of the endometrium and adnexa. COMPARISON: No relevant prior studies available. FINDINGS: Surgically absent uterus and ovaries. Incompletely distended bladder is grossly unremarkable. No masses in the pelvis. No free fluid. No other pathology. US/Pelvic (Non ) IMPRESSION: No pelvic mass or other pathology. Electronically Signed: Laci Duque MD at 2:53 EDT ,
== END | disposition home or self-care (01) ==
LOC: OPUS 12:14
PROVIDERS: PCP Family Medicine; Referring Provider Nurse Practitioner Women's Health; Visit Provider Nurse Practitioner Women's Health
DX: R19.00 Intra-abdominal and pelvic swelling, mass and lump, unspecified site (principal); N89.8 Other specified noninflammatory disorders of vagina
CPT/HCPCS: 76830; 76856

== ENCOUNTER → 2023-08-21 | Outpatient (CLI) | payer MEDICARE, OTHER, SELFPAY ==
[2023-08-21 15:17] LABS: Absolute Lymphocyte Count 3.48 X10^3/uL (0.83-4.51); Absolute Neutrophil Count 4.1 X10^3/uL (2.0-7.7); Basophil% 1.1 % (0-1); Eosinophil# 0.32 X10^3/uL; Eosinophils% 3.6 % (0-5); Hematocrit 41.6 % (37-47); Hemoglobin 13.2 g/dL (12.0-15.0); Lymphocyte # 3.48 X10^3/ul (0.83-4.51); Lymphocyte % 39.5 % (19-41); Mean Corp Hgb Conc 31.7 g/dL (32-36); Mean Corpuscular Hgb 30.6 pg (27.0-32.0); Mean Corpuscular Volume 96.3 fL (81-99); Mean Platelet Vol. 10.1 fl (6.2-12.0); Monocyte# 0.73 X10^3/uL; Monocyte% 8.3 % (0-10); NRBC Flagged by Analyzer 0 % (0-5); Neutrophil # 4.14 X10^3/uL (2.7-7.7); Neutrophil % 47.2 % (47-70); Platelet Count 333 K/mm3 (150-450); RBC Distribution Width CV 12.5 % (11.6-14.6); RBC Distribution Width SD 44.5 fl (35.1-43.9); Red Blood Count 4.32 M/mm3 (4.2-5.4); White Blood Count 8.8 K/mm3 (4.4-11.0)
[2023-08-21 15:49] LABS: AST(SGOT) 15 U/L (15-37); Alanine Aminotransfer ALT/SGPT 17 U/L (13-56); Albumin, Serum 3.7 g/dL (3.2-5.0); Alkaline Phosphatase 96 U/L (45-117); Anion Gap 9 (5-15); BUN 12 mg/dL (7-18); BUN/Creat Ratio 12.4 RATIO (10-20); Chloride 99 mmol/L (98-107); Cholesterol 279 mg/dL (200); Creatinine, Serum 0.96 mg/dL (0.55-1.02); EST Glomerular Filtration Rate 60 mL/min (>60); Est Glom Filt Rate - Afr Amer 72 mL/min (>60); Globulin 3.7 g/dL (2.2-4.2); Glucose 95 mg/dL (74-106); High Density Lipoprotein 49 mg/dL; Potassium 4.2 mmol/L (3.5-5.1); Protein, Total 7.4 g/dL (6.4-8.2); Sodium Level 134 mmol/L (136-145); T4 Free Direct 1.17 ng/dL (0.76-1.46); Triglycerides 281 mg/dL; Very Low Density Lipoprotein 56 mg/dL (5-40)
== END | disposition home or self-care (01) ==
PROVIDERS: PCP Family Medicine; Referring Provider Family Medicine; Visit Provider Family Medicine
DX: E03.9 Hypothyroidism, unspecified (principal); E55.9 Vitamin D deficiency, unspecified; E78.00 Pure hypercholesterolemia, unspecified; N39.0 Urinary tract infection, site not specified; R94.4 Abnormal results of kidney function studies
CPT/HCPCS: 36415; 80053; 80061; 82306; 84439; 84443; 85025

== ENCOUNTER → 2023-11-22 | Outpatient (CLI) | payer MEDICARE, OTHER, SELFPAY ==
--- OUTSIDE RECORDS SUMMARY | 2023-11-22 10:32 | XMS RPT_ITS | CCD ---
Author Name Unknown Address [address] [place] [address] Organization [facility] Care Team Providers Care [employer] Name Role Phone Sivakumar Mcintyre MD Primary Care Provider GARETH RODAS Attending Unavailable SIVAKUMAR VERDUGO Referring Unavailable SIVAKUMAR MCINTYRE Primary Care Unavailable Allergies Allergy Classification Reported Allergen(s) Allergy Type Date of Onset Reaction(s) Facility (3 sources) Amoxicillin / Clavulanate; Translations: [AMOXICILLIN-POT CLAVULANATE] Drug Allergy 3 Other: See Comments [facility] (3 sources) atorvastatin; Translations: [ATORVASTATIN] Drug Allergy 3 Myalgia [facility] (3 sources) Azithromycin; Translations: [AZITHROMYCIN] Drug Allergy 3 GI Upset, Other: See Comments [facility] (3 sources) Clarithromycin; Translations: [CLARITHROMYCIN] Drug Allergy 3 GI Upset [facility] (3 sources) Codeine; Translations: [CODEINE] Drug Allergy 3 Unknown [facility] (3 sources) diphenhydrAMINE; Translations: [DIPHENHYDRAMINE HCL] Drug Allergy 7 [facility] (3 sources) Doxycycline; Translations: [DOXYCYCLINE] Drug Allergy 3 Unknown [facility] (3 sources) Ketoprofen; Translations: [KETOPROFEN] Drug Allergy 3 Other: See Comments [facility] (3 sources) levoFLOXacin; Translations: [LEVOFLOXACIN] Drug Allergy 3 Other: See Comments [facility] (3 sources) Meperidine; Translations: [MEPERIDINE (PF)] Drug Allergy 7 [facility] (3 sources) Morphine; Translations: [MORPHINE] Drug Allergy 9 [facility] Work Phone: (3 sources) NITROFURANTOIN, MACROCRYSTALS / Nitrofurantoin, Monohydrate; Translations: [NITROFURANTOIN MONOHYD/M-CRYST] Drug Allergy 3 Unknown [facility] (3 sources) Non-steroidal anti-inflammatory agent; Translations: [NSAIDS (NON-STEROIDAL ANTI-INFLAMMATORY DRUG)] Propensity to adverse reactions 7 [facility] (3 sources) Ofloxacin; Translations: [OFLOXACIN] Drug Allergy 3 Unknown [facility] (3 sources) SUMAtriptan; Translations: [SUMATRIPTAN] Drug Allergy 3 Unknown [facility] (3 sources) traMADol; Translations: [TRAMADOL] Drug Allergy 3 Unknown [facility] (3 sources) ZOLMitriptan; Translations: [ZOLMITRIPTAN] Drug Allergy 3 Unknown [facility] Medications Completed/Discontinued Medications Medication Drug Class(es) Dates Sig (Normalized) Sig (Original) aspirin 81 mg delayed release oral tablet (2 sources) Platelet Aggregation Inhibitor, Nonsteroidal Anti-inflammatory Drug take 1 tablet by mouth once daily aspirin, enteric coated (ASPIRIN, ENTERIC COATED) 81 mg EC tablet Take 81 mg by mouth once daily. 0 Active Problems Problem Classification Problem Date Documented Date Episodic/Chronic Other female genital disorders (1 source) Vaginal discharge; Translations: [Other specified noninflammatory disorders of vagina] 08-14-2023 Episodic Other female genital disorders (1 source) Other specified noninflammatory disorders of vagina; Translations: [Vaginal discharge] Onset: 08-14-2023 Episodic Other screening for suspected conditions (not mental disorders or infectious disease) (2 sources) Patient encounter status; Translations: [Encounter for screening for malignant neoplasm of colon] Onset: 08-14-2023 08-14-2023 Episodic Results Test Name Value Interpretation Reference Range Facil ity Vital Signs Date Time Vital Sign Value Performing Clinician [place] [facility] 08-14-2023 15:12-0400 Body height 163.8 cm Gareth Rodas MD Work Phone: [facility] 08-14-2023 15:12-0400 Body temperature 98.1 [degF] Gareth Rodas MD Work Phone: [facility] 08-14-2023 15:12-0400 Body weight 66.77 kg Gareth Rodas MD Work Phone: [facility] 08-14-2023 15:12-0400 Diastolic blood pressure 70 mm[Hg] Gareth Rodas MD Work Phone: [facility] 08-14-2023 15:12-0400 Heart rate 68 /min Gareth Rodas MD Work Phone: [facility] 08-14-2023 15:12-0400 Respiratory rate 12 /min Gareth Rodas MD Work Phone: [facility] 08-14-2023 15:12-0400 SaO2% (BldA) [Mass fraction] 96 % Gareth Rodas MD Work Phone: [facility] 08-14-2023 15:12-0400 Systolic blood pressure 106 mm[Hg] Gareth Rodas MD Work Phone: [facility] Encounters Encounter Date Encounter Type Care Provider Facility Start: 08-22-2023 Telephone encounter Gareth jacobs MD Work Phone: General Surgery Plan of Treatment Date Care Activity Detail Author Start: 07-14-2023 Covid-19 Vaccine ( season) Covid-19 Vaccine ( season) [facility] Start: 11-13-2022 Advance Directive Discussion Advance Directive Discussion [facility] Start: 11-13-2022 Depression Assessment Depression Assessment [facility] Start: 2012 Pneumococcal Vaccine: 65+ (1 - PCV) Pneumococcal Vaccine: 65+ (1 - PCV) [facility] Start: 2007 RSV Vaccine (1 - 1-dose 60+ series) RSV Vaccine (1 - 1-dose 60+ series) [facility] Start: 1997 Shingrix Vaccine (1 of 2) Shingrix Vaccine (1 of 2) [facility] Start: 1992 Diabetes Screening Diabetes Screening [facility] Start: 1966 Urine microalbumin profile DTaP,Tdap,Td Vaccine (1 - Tdap) [facility] Start: 1965 Hepatitis C Screening Hepatitis C Screening [facility] End: 08-14-2024 COLONOSCOPY DIAGNOSTIC COLONOSCOPY DIAGNOSTIC Endoscopy Routine Encounter for screening for malignant neoplasm of colon Vaginal discharge 1 Occurrences starting 08/14/2023 until 08/14/2024 [facility] Work Phone: Payers Date Payer Category Payer Private Health Insurance WEND[employer] MONOTYA PPO [id number] 2005-Present [phone] [address] [place] [address] PPO [id number] 2005 Private Health Insurance [id number] 2001 Medicare MEDICARE MEDICAR E A AND B [id number] 2001-Present [phone] [address] [address] [place] [address] Medicare [id number] 2001 Medicare [id number] Social History Date Type Detail Facility Start: 08-10-2023 Tobacco smoking stat us NHIS Ex-smoker [facility] End: 11-13-1970 History of tobacco use Current smoker [facility] End: 11-13-1970 History of tobacco use Cigarette Smoker [facility] Start: 07-25-2023 End: 08-10-2023 Cigarettes smoked current (pack per day) - Reported 1 [facility] Start: 08-10-2023 Tobacco use and exposure Smoke less tobacco non-user [facility] Start: 08-14-2023 Alcohol intake Ex-drinker (finding) [facility] Start: 07-25-2023 End: 08-14-2023 Tobacco use panel [facility] National Score (1-10 0), lower number is lower risk 60 [facility] Start: 08-10-2023 Tobacco Comment Q[facility] 34 [facility] Start: 08-10-2023 Alcohol Comment social/rare [facility] Start: 1945 Sex Assigned At Not on file [facility] Progress note 08-24-2023 Note Date & Type Note Facility 08-24-2023 Note HNO ID: [id number] Author: Gareth Rodas MD Service: ? Author Type: Physician Type: Progress Notes Filed: 08/24/2023 1:25 PM Note Text: HISTORY AND PHYSICAL Denise Ramon 1945 REFERRING PHYSICIAN: Sivakumar Mcintyre MD, MD CHIEF COMPLAINT: Consult HPI: The patient is a 78 year old female referred for endoscopy. Denise notes the following GI complaints: Denise denies abdominal pain.. Denise denies diarrhea. Denise denies constipation. Denise denies a change in bowel habits. Denise denies melena. Denise denies bright red blood per rectum. Denise denies hemorrhoids. She was seen by her [employer]. She been having vaginal discharge for about 2 to 3 months. She had a history of total abdominal hysterectomy and bilateral salpingo-oophorectomy. Recently was seen by her primary care physician was treated for UTI. Dr. Pizano had ordered a barium enema to rule out a fistula and gave her another course of antibiotics which did stop the discharge. Pelvic ultrasound was ordered on 06/28/2023. This showed no pelvic mass or other pathology noted there was no free fluid and there was an absence of uterus and ovaries. The barium enema which was completed on 06/12/2003 showed no evidence of a rectovaginal fistula and only sigmoid diverticulosis. The patient notes no history of upper GI complaints. Denise has not undergone prior endoscopy. The patient is being seen by me today at the request of Dr. Sivakumar Mcintyre MD, MD for my opinion and advice regarding Encounter for screening for malignant neoplasm of colon (primary encounter diagnosis) Vaginal discharge. PAST MEDICAL HISTORY Diagnosis Date Allergic rhinitis Carpal tunnel syndrome Chronic idiopathic constipation Chronic kidney disease Elevated glucose Generalized anxiety disorder Glaucoma Hypercholesterolemia Hypothyroidism Irritable bowel syndrome Low back pain Migraine without mention of intractable migraine Mitral valve disorders(424.0) Palpitations Post-menopausal Recurrent UTI Vaginal discharge Vitamin D deficiency PAST SURGICAL HISTORY Procedure Laterality Date ANESTH, HYSTERECTOMY 1988 APPENDECTOMY 1956 PAST SURGICAL HISTORY OF 11/13/2008 Glaucoma Surgery REVISE MEDIAN N/CARPAL TUNNEL SURG Bilateral 1987 REVISE MEDIAN N/CARPAL TUNNEL SURG Right 1985 TONSILLECTOMY PRIMARY/SECONDARY Current Outpatient Medications Medication Sig aspirin, enteric coated (ASPIRIN, ENTERIC COATED) 81 mg EC tablet Take 81 mg by mouth once daily. cholecalciferol (VITAMIN D-3) 5,000 unit tab Take 5,000 Units by mouth once daily. clonazePAM (KLONOPIN) 0.5 mg tablet Take 0.5 mg by mouth at bedtime as needed for anxiety (1-2 tablets). COMPOUNDED PRESCRIPTION AlphaGam Eye Drops: Apply one drop to each eye twice daily. estradiol (VIVELLE-DOT) 0.025 mg/24 hr Apply one(1) patch twice weekly. latanoprost (XALATAN) 0.005 % ophthalmic solution Use 1 Drop in both eyes daily at bedtime. levothyroxine (SYNTHROID) 75 mcg tablet Take 75 mcg by mouth daily before breakfast. LEVOTHYROXINE 100 MCG TAB Takes one tablet daily PROPRANOLOL 80 MG TAB Take one tablet daily sennosides (SENNA LAXATIVE ORAL) Take 1 tablet by mouth as needed (constipation). VYZULTA 0.024 % ophthalmic drops Use 1 Drop in both eyes daily at bedtime. No current facility-administered medications for this visit. ALLERGIES: Augmentin [Amoxicillin-Pot Clavulanate], Benadryl [Diphenhydramine Hcl], Biaxin [Clarithromycin], Codeine, Demerol [Meperidine (Pf)], Doxycycline, Floxin [Ofloxacin], Imitrex [Sumatriptan], Levaquin [Levofloxacin], Lipitor [Atorvastatin], Macrobid [Nitrofurantoin Monohyd/M-Cryst], Morphine, Nsaids (Non-Steroidal Anti-Inflammatory Drug), Oruvail [Ketoprofen], Ultram [Tramadol], Zithromax [Azithromycin], and Zomig [Zolmitriptan] PERSONAL HISTORY: Social History Tobacco Use Smoking status: Former Packs/day: 1.00 Years: 10.00 Additional pack years: 0.00 Total pack years: 10.00 Types: Cigarettes Quit date: 1970 Years since quittin.8 Smokeless tobacco: Never Tobacco comments: Quit 34 years ago Vaping Use Vaping Use: Never used Substance Use Topics Alcohol use: Not Currently Comment: social/rare Drug use: Never FAMILY HISTORY: FAMILY HISTORY Problem Relation Age of Onset Alcohol/Drug Mother other (Other) Father - Natural Causes Ischemic Heart Disease Half-sister Migraines Half-sister Depression Half-sister Drug abuse Half-sister No Known Problems Half-sibling Parkinson?s Disease Half-brother other (heart murmur) Half-brother No Known Problems Maternal Grandmother No Known Problems Maternal Grandfather No Known Problems Paternal Grandmother No Known Problems Paternal Grandfather Graves Disease Daughter other (Wegners) Daughter No Known Problems Son REVIEW OF SYMPTOMS: The review of systems data was entered by the nurse and reviewed by me N (more content not included)... [facility] History of Present illness Narrative 08-24-2023 Gareth Rodas MD - 08/24/2023 1:17 PM EDT Note Date & Type Note Facility 08-24-2023 History of Presen t illness Narrative HISTORY AND PHYSICAL Denise Ramon 1945 REFERRING PHYSICIAN: Sivakumar Mcintyre MD, MD CHIEF COMPLAINT: Consult HPI: The patient is a 78 year old female referred for endoscopy. Denise notes the following GI complaints: Denise denies abdominal pain.. Denise denies diarrhea. Denise denies constipation. Denise denies a change in bowel habits. Denise denies melena. Denise denies bright red blood per rectum. Denise denies hemorrhoids. She was seen by her [employer] MANAGER. She been having vaginal discharge for about 2 to 3 months. She had a history of total abdominal hysterectomy and bilateral salpingo-oophorectomy. Recently was seen by her primary care physician was treated for UTI. Dr. Pizano had ordered a barium enema to rule out a fistula and gave her another course of antibiotics which did stop the discharge. Pelvic ultrasound was ordered on 06/28/2023. This showed no pelvic mass or other pathology noted there was no free fluid and there was an absence of uterus and ovaries. The barium enema which was completed on 06/12/2003 showed no evidence of a rectovaginal fistula and only sigmoid diverticulosis. The patient notes no history of upper GI complaints. Denise has not undergone prior endoscopy. The patient is being seen by me today at the request of Dr. Sivakumar Mcintyre MD, MD for my opinion and advice regarding Encounter for screening for malignant neoplasm of colon (primary encounter diagnosis) Vaginal discharge. PAST MEDICAL HISTORY Diagnosis Date Allergic rhinitis Carpal tunnel syndrome Chronic idiopathic constipation Chronic kidney disease Elevated glucose Generalized anxiety disorder Glaucoma Hypercholesterolemia Hypothyroidism Irritable bowel syndrome Low back pain Migraine without mention of intractable migraine Mitral valve disorders(424.0) Palpitations Post-menopausal Recurrent UTI Vaginal discharge Vitamin D deficiency PAST SURGICAL HISTORY Procedure Laterality Date ANESTH, HYSTERECTOMY 1988 APPENDECTOMY 1956 PAST SURGICAL HISTORY OF 11/13/2008 Glaucoma Surgery REVISE MEDIAN N/CARPAL TUNNEL SURG Bilateral 1987 REVISE MEDIAN N/CARPAL TUNNEL SURG Right 1985 TONSILLECTOMY PRIMARY/SECONDARY <AGE 14 Current Outpatient Medications Medication Sig aspirin, enteric coated (ASPIRIN, ENTERIC COATED) 81 mg EC tablet Take 81 mg by mouth once daily. cholecalciferol (VITAMIN D-3) 5,000 unit tab Take 5,000 Units by mouth once daily. clonazePAM (KLONOPIN) 0.5 mg tablet Take 0.5 mg by mouth at bedtime as needed for anxiety (1-2 tablets). COMPOUNDED PRESCRIPTION AlphaGam Eye Drops: Apply one drop to each eye twice daily. estradiol (VIVELLE-DOT) 0.025 mg/24 hr Apply one(1) patch twice weekly. latanoprost (XALATAN) 0.005 % ophthalmic solution Use 1 Drop in both eyes daily at bedtime. levothyroxine (SYNTHROID) 75 mcg tablet Take 75 mcg by mouth daily before breakfast. LEVOTHYROXINE 100 MCG TAB Takes one tablet daily PROPRANOLOL 80 MG TAB Take one tablet daily sennosides (SENNA LAXATIVE ORAL) Take 1 tablet by mouth as needed (constipation). VYZULTA 0.024 % ophthalmic drops Use 1 Drop in both eyes daily at bedtime. No current facility-administered medications for this visit. ALLERGIES: Augmentin [Amoxicillin-Pot Clavulanate], Benadryl [Diphenhydramine Hcl], Biaxin [Clarithromycin], Codeine, Demerol [Meperidine (Pf)], Doxycycline, Floxin [Ofloxacin], Imitrex [Sumatriptan], Levaquin [Levofloxacin], Lipitor [Atorvastatin], Macrobid [Nitrofurantoin Monohyd/M-Cryst], Morphine, Nsaids (Non-Steroidal Anti-Inflammatory Drug), Oruvail [Ketoprofen], Ultram [Tramadol], Zithromax [Azithromycin], and Zomig [Zolmitriptan] PERSONAL HISTORY: Social History Tobacco Use Smoking status: Former Packs/day: 1.00 Years: 10.00 Additional pack years: 0.00 Total pack years: 10.00 Types: Cigarettes Quit date: 1970 Years since quittin.8 Smokeless tobacco: Never Tobacco comments: Quit 34 years ago Vaping Use Vaping Use: Never used Substance Use Topics Alcohol use: Not Currently Comment: social/rare Drug use: Never FAMILY HISTORY: FAMILY HISTORY Problem Relation Age of Onset Alcohol/Drug Mother other (Other) Father - Natural Causes Ischemic Heart Disease Half-sister Migraines Half-sister Depression Half-sister Drug abuse Half-sister No Known Problems Half-sibling Parkinson s Disease Half-brother other (heart murmur) Half-brother No Known Problems Maternal Grandmother No Known Problems Maternal Grandfather No Known Problems Paternal Grandmother No Known Problems Paternal Grandfather Graves Disease Daughter other (Wegners) Daughter No Known Problems Son REVIEW OF SYMPTOMS: The review of systems data was entered by the nurse and reviewed by me Nursing Notes: Alice Jerome LPN 08/14/2023 3:22 PM Signed REVIEW OF SYSTEMS: General: The patient NOTES fatigue, denies weight loss, denies weight gain, denies feeling hot, and denies feelings of cold. Eyes: The patient NOTES glaucoma, denies eye injury/surgery, does not wear glasses or contacts. Ear/Nose/Throat: The patient denies allergies, denies hayfever, denies ear infections, and denies bloody noses. Cardiovascular: The patient denies chest pain, denies heart disease, denies high blood pressure,denies cardiac stent, denies prior heart attack, NOTES irregular heart beat, denies high cholesterol, denies poor circulation, denies heart failure, other cardiac issues, denies claudication, denies cold feet, denies peripheral arterial stent. Respiratory: The patient denies tuberculosis, denies pneumonia, denies frequent cough, denies pulmonary embolism, denies shortness of breath, and denies coughing up blood. Gastrointestinal: The patient denies difficulty swallowing, denies acid reflux, denies ulcers, denies vomiting, denies jaundice/hepatitis, denies gallbladder problems, denies black or tarry stools, NOTES hemorrhoids, denies bleeding from rectum, denies diverticulitis, denies constipation, NOTES diarrhea, denies loss of stool control, and denies hernias. Kidney/Bladder: The patient denies kidney stones, denies urine infections, and denies bloody urine. Skin: The patient denies a history of skin cancer, denies bleeding/changing moles, and denies a history of skin rash. Neurologic: The patient denies a history of epilepsy/convulsions, denies headaches, denies head/spinal injuries, and denies stroke/TIA. Psychiatric: The patient denies psychiatric medications, denies depression, and denies voices, denies substance abuse. Endocrine: The patient NOTES thyroid disorders, denies diabetes, and denies hormonal problems. Hematologic: The patient denies a history of bruising, denies bleeding, and denies anemia, denies blood clots. Infections: The patient denies a history of measles and mumps, denies rheumatic fever, and denies sexually transmitted diseases. Musculoskeletal: The patient denies back pain/injury, denies back problems, denies sciatica, denies knee/foot trouble, denies arthritis, or denies gout. When was patient's last Mammogram screening? Patient states done at [facility] on 04/22/2023 Last Colonoscopy: Approximately 10 years ago at [facility] PHYSICAL EXAMINATION: General: The patient is 78 year old female, well nourished, well hydrated in no acute distress. The patient is oriented to time, place, and person. VITALS: Blood pressure 106/70, pulse 68, temperature 36.7 C (98.1 F), temperature source Temporal, resp. rate 12, height 163.8 cm (5' 4.5 ), weight 66.8 kg (147 lb 3.2 oz), SpO2 96 %. Body mass index is 24.88 kg/m . HEENT: Normal cephalic, ataumatic, pupils are equally round, sclera are anicteric, mucous membranes are moist, oropharynx is clear. Neck has no masses, asymmetry or lymphadenopathy. Thyroid is unremarkable. Respiratory: Clear to auscultation and percussion. Normal respiratory excursion and pattern. Cardiac: Examination is regular rate and rhythm. Abdominal exam: Soft, nontender, with no palpable masses. No hepatosplenomegaly. No palpable hernias. Rectal exam: exam deferred Extremities: no clubbing, cyanosis or edema. No adenopathy. Other: LABORATORY VALUES: As Noted RADIOLOGIC STUDIES: As Noted Assessment IMPRESSION: Encounter for screening for malignant neoplasm of colon (primary encounter diagnosis) Vaginal discharge PLAN: I plan to perform lower endoscopy. We discussed the risks and benefits of the planned endoscopy. I have informed the patient that complications can occur including failure to complete the endoscopy and perforation. The patient had the opportunity to ask questions concerning the planned endoscopy. My staff has also explained the procedure to the patient in understandable terms and has given the patient printed material concerning the procedure. The patient freely consents to surgery. I plan to use golytely bowel preparation for endoscopy Diagnoses: (Z12.11) Encounter for screening for malignant neoplasm of colon (primary encounter diagnosis) (N89.8) Vaginal discharge A letter was sent to Dr. Sivakumar Mcintyre MD, indicating the above finding for this patient. Return to Clinic: The patient is instructed to follow-up with me 1 week post operatively. Gareth Rodas III, MD documented in this encounter [facility] Note 08-22-2023 Telephone Encounter - Taylor Garcia LPN - 08/22/2023 2:57 PM EDT Note Date & Type Note Facility 08-22-2023 Miscellaneous Notes Formattin g of this note might be different from the original. Dr Mcintyre requesting office note from 08/14/23, please complete. Please review Thank you. Taylor Garcia LPN documented in this encounter [facility] Instructions 08-14-2023 Patient Instructions Note Date & Type Note Facility 08-14-2023 Instructions Gareth Rodas MD - 08/14/2023 3:29 PM EDT Images from the original note were not included. Bowel Preparation Instructions for: Miralax-Gatorade Preparations IF YOU DO NOT FOLLOW THESE DIRECTIONS, YOUR COLONOSCOPY WILL BE CANCELLED. [facility] Instructions: Your bowel must be empty so that your doctor can clearly view your colon. Follow all of the instructions in this handout EXACTLY as they are written. Do NOT eat any solid food the ENTIRE day before your colonoscopy. Buy your bowel preparation at least 5 days before your colonoscopy. Four (4) Dulcolax laxative tablets containing 5mg of bisacodyl each (NOT Dulcolax stool softener) One (1) 8.3oz. bottle Miralax (238 grams) or generic equivalent 2 x 32oz. Bottles of Gatorade (NOT RED) Diabetic Patients: Use G2 (Gatorade 2) TRANSPORTATION on the Day of Your Exam A responsible adult MUST be present with you at Check In prior to your colonoscopy and REMAIN in the endoscopy area until you are discharged. You are NOT ALLOWED to drive, take a taxi or bus, or leave the Endoscopy Center ALONE. If you do not have a responsible solo truck driver (family member or friend) with you to take you home, your exam cannot be done with sedation and will be cancelled. Please bring a list of all of your current medications, including any [id number] medications with you. Medications If you take insulin, diabetic medications or blood thinners such as Coumadin (warfarin), Plavix (clopidogrel), Ticlid (ticlopidine hydrochloride), Agrylin (anagrelide), Xarelto (Rivaroxaban), Pradaxa (Dabigatran), Eliquis (Apixaban), and Effient (Prasugrel). You MUST call the doctors who orders those medicines for instructions on altering the dosage before your colonoscopy. All other medications should be taken the day of the exam with a sip of water including ASPIRIN. Five (5) Days Before Your Colonoscopy Do NOT take medicines that stop diarrhea - such as Imodium, Kaopectate, or Pepto Bismol. Do NOT take fiber supplements - such as Metamucil, Citrucel, or Perdiem. Do NOT take products that contain iron - such as multi-vitamins (the label lists what is in the products). Three (3) Days Before Your Colonoscopy Do NOT eat high-fiber foods - such as popcorn, beans, seeds (flax, sunflower, quinoa), multigrain bread, nuts, salad/vegetables, or fresh and dried fruit. 1 Bowel Preparation Instructions for: Miralax-Gatorade Preparations One (1) Day Before Your Colonoscopy Only drink clear liquids the ENTIRE DAY before your colonoscopy. Do NOT eat any solid foods. Drink at least 8 ounces of clear liquids every hour after waking up. The clear liquids you can drink include: Clear Liquid (NO RED LIQUIDS) DO NOT DRINK Gatorade, Pedialyte or Powerade Clear broth or bouillon Coffee or tea (no milk or non-dairy creamer) Carbonated and non-carbonated soft drinks Maximus-Aid or other fruit flavored drinks Strained fruit juices (no pulp) Jell-O, popsicles, hard candy Water Alcohol Milk or non-dairy creamers Noodles or vegetables in soup Juice with pulp Liquid you cannot see through Do not use tobacco/vaping products Mix 1/2 of Miralax bottle (119 grams) in each 32 ounces of Gatorade bottle until dissolved. Keep cool in the refrigerator. DO NOT ADD ICE. The bowel preparation solution will be consumed in two parts. Part 1 5:00 PM - Evening before your colonoscopy Take 4 Dulcolax tablets. 6 PM - Evening before your colonoscopy Drink 32 oz. of the mixed solution. Drink an 8 oz. glass of bowel preparation every 15 minutes for a total of 4 glasses. Fifteen (15) minutes later, drink an 8 oz. glass of of clear liquids every 15 minutes for a total of 2 glasses. You may continue to drink clear liquids till midnight. Part 2 On the day of your colonoscopy you may drink clear liquids up to (three) 3 hours prior to procedure. 4 1/2 hours before your colonoscopy Take another 32 oz. bottle of mixed solution. Drink an 8 oz. glass of bowel prep every 15 minutes for a total of 4 glasses. Fifteen (15) minutes later, drink an 8 oz. glass of clear liquids every 15 minutes for a total of 2 glasses. You may continue to drink clear liquids up to (three) 3 hours before your exam. 2 10/2019 documented in this encounter [facility] Nurse Note 08-14-2023 Alice Jerome LPN - 08/14/2023 3:19 PM EDT Note Date & Type Note Facility 08-14-2023 Nurse Note REVIEW OF SYSTEMS: General: The patient NOTES fatigue, denies weight loss, denies weight gain, denies feeling hot, and denies feelings of cold. Eyes: The patient NOTES glaucoma, denies eye injury/surgery, does not wear glasses or contacts. Ear/Nose/Throat: The patient denies allergies, denies hayfever, denies ear infections, and denies bloody noses. Cardiovascular: The patient denies chest pain, denies heart disease, denies high blood pressure,denies cardiac stent, denies prior heart attack, NOTES irregular heart beat, denies high cholesterol, denies poor circulation, denies heart failure, other cardiac issues, denies claudication, denies cold feet, denies peripheral arterial stent. Respiratory: The patient denies tuberculosis, denies pneumonia, denies frequent cough, denies pulmonary embolism, denies shortness of breath, and denies coughing up blood. Gastrointestinal: The patient denies difficulty swallowing, denies acid reflux, denies ulcers, denies vomiting, denies jaundice/hepatitis, denies gallbladder problems, denies black or tarry stools, NOTES hemorrhoids, denies bleeding from rectum, denies diverticulitis, denies constipation, NOTES diarrhea, denies loss of stool control, and denies hernias. Kidney/Bladder: The patient denies kidney stones, denies urine infections, and denies bloody urine. Skin: The patient denies a history of skin cancer, denies bleeding/changing moles, and denies a history of skin rash. Neurologic: The patient denies a history of epilepsy/convulsions, denies headaches, denies head/spinal injuries, and denies stroke/TIA. Psychiatric: The patient denies psychiatric medications, denies depression, and denies voices, denies substance abuse. Endocrine: The patient NOTES thyroid disorders, denies diabetes, and denies hormonal problems. Hematologic: The patient denies a history of bruising, denies bleeding, and denies anemia, denies blood clots. Infections: The patient denies a history of measles and mumps, denies rheumatic fever, and denies sexually transmitted diseases. Musculoskeletal: The patient denies back pain/injury, denies back problems, denies sciatica, denies knee/foot trouble, denies arthritis, or denies gout. When was patient's last Mammogram screening? Patient states done at [facility] on 04/22/2023 Last Colonoscopy: Approximately 10 years ago at [facility] Alice Jerome LPN documented in this encounter [facility] Evaluation note Note Date & Type Note Facility documented in this encounter [facility] Reason for referral (narrative) Outpatient Procedure (Routine) - Authorized Note Date & Type Note Facility Referral ID Status Reason Start Date Expiration Date Visits Requested Visits Authorized [id number] Authorized Auto-Generat ed Referral 08/14/2023 08/14/2024 1 1 [facility] Summary Purpose Family History No Family History Records Found Advance Directives No Advanced Directives Records Found Additional Source Comments Source Comments (unrecognize d section and content) In the event this informatio n is protected by the Federal Confidentiality of Alcohol and Drug Abuse Patient Records regulations: The Federal rules restrict any use of the information to criminally investigate or prosecute any alcohol or drug abuse patient.[facility] event this information is protected by the Federal Confidentiality of Alcohol and Drug Abuse Patient Records regulations: The Federal rules restrict any use of the information to criminally investigate or prosecute any alcohol or drug abuse patient.[facility] Reason for Visit (unrecogniz ed section and content) Reason Comments Appointment Office note Care Teams (unrecognized sec tion and content) [employer] Relationship Specialty Start Date End Date Sivakumar Mcintyre MD [address] [facility] [address] [place] [address] PCP - General Family Medicine 08/07/23 INFORMATION SOURCE (unrecogn ized section and content) FOR RECORDS PERTAINING TO PATIENTS WHO ARE OR HAVE BEEN ENROLLED IN A CHEMICAL DEPENDENCY/SUBSTANCEABUSE PROGRAM, SOME INFORMATION MAY BE OMITTED. This clinical summary was aggregated from multiple sources. Caution should be exercised in using it in the provision of clinical care. This summary normalizes information from multiple sources, and as a consequence, information in this document may materially change the coding, format and clinical context of patient data. In addition, data may be omitted in some cases. CLINICAL DECISIONS SHOULD BE BASED ON THE PRIMARY CLINICAL RECORDS. [facility] [employer] [facility] provides no warranty or guarantee of the accuracy or completeness of information in this document.
[2023-11-22 10:38] LABS: Absolute Neutrophil Count 4.1 X10^3/uL (2.0-7.7); Basophil# 0.07 X10^3/uL; Basophil% 0.9 % (0-1); Eosinophil# 0.19 X10^3/uL; Eosinophils% 2.4 % (0-5); Hematocrit 40.4 % (37-47); Lymphocyte % 35.8 % (19-41); Mean Corp Hgb Conc 32.2 g/dL (32-36); Mean Corpuscular Hgb 30.4 pg (27.0-32.0); Mean Corpuscular Volume 94.6 fL (81-99); Mean Platelet Vol. 9.9 fl (6.2-12.0); Monocyte# 0.66 X10^3/uL; Monocyte% 8.4 % (0-10); NRBC Flagged by Analyzer 0 % (0-5); Neutrophil # 4.09 X10^3/uL (2.7-7.7); Neutrophil % 52.2 % (47-70); Platelet Count 412 K/mm3 (150-450); RBC Distribution Width CV 12.7 % (11.6-14.6); Red Blood Count 4.27 M/mm3 (4.2-5.4); White Blood Count 7.8 K/mm3 (4.4-11.0)
[2023-11-22 11:21] LABS: ALB/GLOB Ratio 0.9 RATIO (0.9-2.4); AST(SGOT) 14 U/L (15-37); Alanine Aminotransfer ALT/SGPT 17 U/L (13-56); Albumin, Serum 3.5 g/dL (3.2-5.0); Alkaline Phosphatase 100 U/L (45-117); Anion Gap 7 (5-15); BUN 16 mg/dL (7-18); BUN/Creat Ratio 15.7 RATIO (10-20); Calcium,Total 9.6 mg/dL (8.5-10.1); Chloride 110 mmol/L (98-107); Creatinine, Serum 1.02 mg/dL (0.55-1.02); EST Glomerular Filtration Rate 56 mL/min (>60); Est Glom Filt Rate - Afr Amer 68 mL/min (>60); Globulin 3.9 g/dL (2.2-4.2); Glucose 100 mg/dL (74-106); Potassium 4.5 mmol/L (3.5-5.1); Protein, Total 7.4 g/dL (6.4-8.2); Sodium Level 141 mmol/L (136-145); T4 Free Direct 1.52 ng/dL (0.76-1.46); Thyroid Stim Hormone (TSH) 2.06 uIU/mL (0.358-3.74)
[2023-11-22 12:19] LABS: Vitamin D,25 Hydroxy 55.4 ng/mL
== END | disposition home or self-care (01) ==
LOC: MFPLAB 09:47
PROVIDERS: PCP Family Medicine; Visit Provider Family Medicine
DX: E03.9 Hypothyroidism, unspecified (principal); E55.9 Vitamin D deficiency, unspecified
CPT/HCPCS: 36415; 80053; 82306; 84439; 84443; 85025

== ENCOUNTER → 2024-05-21 | Outpatient (CLI) | payer MEDICARE, OTHER, SELFPAY ==
[2024-05-21 12:49] LABS: Absolute Lymphocyte Count 2.31 X10^3/uL (0.83-4.51); Absolute Neutrophil Count 3.7 X10^3/uL (2.0-7.7); Basophil# 0.09 X10^3/uL; Basophil% 1.3 % (0-1); Eosinophil# 0.18 X10^3/uL; Eosinophils% 2.6 % (0-5); Hematocrit 40.9 % (37-47); Hemoglobin 13.1 g/dL (12.0-15.0); Lymphocyte # 2.31 X10^3/ul (0.83-4.51); Lymphocyte % 33.4 % (19-41); Mean Corpuscular Hgb 30.3 pg (27.0-32.0); Mean Corpuscular Volume 94.7 fL (81-99); Mean Platelet Vol. 10.6 fl (6.2-12.0); Monocyte# 0.62 X10^3/uL; NRBC Flagged by Analyzer 0 % (0-5); Neutrophil # 3.69 X10^3/uL (2.7-7.7); Neutrophil % 53.3 % (47-70); Platelet Count 308 K/mm3 (150-450); RBC Distribution Width CV 12.4 % (11.6-14.6); RBC Distribution Width SD 43.3 fl (35.1-43.9); Red Blood Count 4.32 M/mm3 (4.2-5.4); White Blood Count 6.9 K/mm3 (4.4-11.0)
[2024-05-21 13:59] LABS: AST(SGOT) 15 U/L (15-37); Alanine Aminotransfer ALT/SGPT 20 U/L (13-56); Albumin, Serum 3.6 g/dL (3.2-5.0); Alkaline Phosphatase 82 U/L (45-117); Anion Gap 6 (5-15); BUN 11 mg/dL (7-18); BUN/Creat Ratio 11.7 RATIO (10-20); Calcium,Total 9.4 mg/dL (8.5-10.1); Chloride 106 mmol/L (98-107); Cholesterol 250 mg/dL (200); Creatinine, Serum 0.94 mg/dL (0.55-1.02); EST Glomerular Filtration Rate 62 mL/min (>60); Est Glom Filt Rate - Afr Amer 75 mL/min (>60); Globulin 3.7 g/dL (2.2-4.2); Glucose 89 mg/dL (74-106); High Density Lipoprotein 52 mg/dL; Protein, Total 7.3 g/dL (6.4-8.2); Sodium Level 136 mmol/L (136-145); T4 Free Direct 1.19 ng/dL (0.76-1.46); Triglycerides 193 mg/dL; Very Low Density Lipoprotein 39 mg/dL (5-40)
== END | disposition home or self-care (01) ==
LOC: MFPLAB 08:33
PROVIDERS: PCP Family Medicine; Visit Provider Family Medicine
DX: E03.9 Hypothyroidism, unspecified (principal); E55.9 Vitamin D deficiency, unspecified
CPT/HCPCS: 36415; 80053; 80061; 82306; 84439; 84443; 85025

== ENCOUNTER → 2024-09-24 | Outpatient (CLI) | payer MEDICARE, OTHER, SELFPAY ==
[2024-09-24 12:23] LABS: Absolute Lymphocyte Count 3.07 X10^3/uL (0.83-4.51); Absolute Neutrophil Count 5.3 X10^3/uL (2.0-7.7); Basophil# 0.06 X10^3/uL; Basophil% 0.6 % (0-1); Eosinophil# 0.26 X10^3/uL; Eosinophils% 2.8 % (0-5); Hematocrit 40.7 % (37-47); Hemoglobin 13.4 g/dL (12.0-15.0); Lymphocyte # 3.07 X10^3/ul (0.83-4.51); Lymphocyte % 32.7 % (19-41); Mean Corp Hgb Conc 32.9 g/dL (32-36); Mean Corpuscular Hgb 30.9 pg (27.0-32.0); Mean Platelet Vol. 10.6 fl (6.2-12.0); Monocyte# 0.73 X10^3/uL; Monocyte% 7.8 % (0-10); NRBC Flagged by Analyzer 0 % (0-5); Neutrophil # 5.25 X10^3/uL (2.7-7.7); Neutrophil % 55.8 % (47-70); Platelet Count 302 K/mm3 (150-450); RBC Distribution Width CV 12.9 % (11.6-14.6); RBC Distribution Width SD 44.5 fl (35.1-43.9); Red Blood Count 4.33 M/mm3 (4.2-5.4); White Blood Count 9.4 K/mm3 (4.4-11.0)
[2024-09-24 13:01] LABS: ALB/GLOB Ratio 1.1 RATIO (0.9-2.4); AST(SGOT) 16 U/L (15-37); Alanine Aminotransfer ALT/SGPT 12 U/L (13-56); Albumin, Serum 3.7 g/dL (3.2-5.0); Alkaline Phosphatase 96 U/L (45-117); Anion Gap 5 (5-15); BUN 11 mg/dL (7-18); BUN/Creat Ratio 12.4 RATIO (10-20); Calcium,Total 9.4 mg/dL (8.5-10.1); Chloride 108 mmol/L (98-107); Cholesterol 252 mg/dL (200); Creatinine, Serum 0.88 mg/dL (0.55-1.02); EST Glomerular Filtration Rate 66 mL/min (>60); Est Glom Filt Rate - Afr Amer 80 mL/min (>60); Globulin 3.4 g/dL (2.2-4.2); Glucose 94 mg/dL (74-106); High Density Lipoprotein 55 mg/dL; Potassium 4.4 mmol/L (3.5-5.1); Protein, Total 7.1 g/dL (6.4-8.2); Sodium Level 139 mmol/L (136-145); T4 Free Direct 1.78 ng/dL (0.76-1.46); Thyroid Stim Hormone (TSH) 0.767 uIU/mL (0.358-3.740); Triglycerides 243 mg/dL; Very Low Density Lipoprotein 49 mg/dL (5-40)
[2024-09-24 13:46] LABS: Vitamin D,25 Hydroxy 28.1 ng/mL
== END | disposition home or self-care (01) ==
LOC: MTLAB 10:40
PROVIDERS: PCP Family Medicine; Referring Provider Family Medicine; Visit Provider Family Medicine
DX: E03.9 Hypothyroidism, unspecified (principal); E55.9 Vitamin D deficiency, unspecified; E78.00 Pure hypercholesterolemia, unspecified
CPT/HCPCS: 36415; 80053; 80061; 82306; 84439; 84443; 85025

== ENCOUNTER 2025-01-18 15:07 | Emergency (ER) | payer MEDICARE, OTHER, SELFPAY ==
[2025-01-18 15:08] VITALS: BP 132/48; PULSE 74; RESP 15; TEMP 36.6; O2SAT 98; BMI 23.1
--- NOTE | 2025-01-18 15:31 | RAD_ITS ---
PROCEDURE: CHEST 1 VIEW REASON FOR EXAM: 79-year-old female, cough, chest pain/pressure TECHNIQUE: Frontal view of the chest. COMPARISON: Chest radiograph 01/23/2022. FINDINGS: The heart size is normal. Increased linear opacity within the right lower lung zone. No pleural effusion or pneumothorax. The bones are unremarkable. RAD/Chest 1 View IMPRESSION: Linear opacity within the right lower lung zone, which may represent pneumoniti s/pneumonia. Reading Location: [facility]
--- NOTE | 2025-01-18 15:32 | EX.ED.VIS.UR ---
HPI HPI - URI History of Present Illness Chief Complaint: Cough Detail of Chief Complaint: Cough and fever Informant: patient Narrative Narrative: Patient presents with cough and fever that started 3 days ago. Cough nonproductive currently. Fever up to 100. Daughter also ill but getting better. Denies chest pain or shortness of breath. Patient has had her influenza vaccine. Patient has had her pneumonia shot. Patient is concerned she may have pneumonia. ROS ROS ED Review of Systems ROS Unobtainable: other Constitutional Constitutional ED: Reports fever(s) and lethargy; Denies chills, sweats or weight loss Eyes Eyes: Denies blurry vision, change in vision or diplopia ENT ENT ED: Denies rhinorrhea or sore throat Cardiovascular Cardiovascular: Denies chest pain, orthopnea or racing heartbeat Respiratory/Chest Respiratory/Chest: Reports cough; Denies dyspnea, dyspnea on exertion, orthopnea or sputum Gastrointestinal Gastrointestinal: Denies abdominal pain, diarrhea, nausea or vomiting Genitourinary Genitourinary ED: Denies dysuria, hematuria or urinary frequency Musculoskeletal Musculoskeletal: Denies arthralgias, back pain, myalgias or neck pain Integumentary Denies abscess, Abrasions or rash Neurologic Neurologic: Reports headache(s); Denies weakness Psychiatric Psychiatric: Denies anxiety, depression or suicidal thoughts Endocrine Endocrinology: Denies polydipsia, polyphagia or polyuria Hematologic/Lymphatic Hematologic/Lymphatic: Denies easy bleeding, easy bruising or lymphadenopathy Allergic/Immunologic Allergic/Immunologic ED: Denies mouth swelling, tongue swelling or urticaria [facility] Medical History (Updated 01/18/25 @ 16:[address] Debi Hernandes, ) Glaucoma Hypothyroidism Hypercholesteremia Nonrheumatic mitral (valve) prolapse Home Medications ?Medication ?Instructions ?Recorded ?Last Taken ?Type clonazepam 0.5 mg tablet 0.5 mg PO QHS 02/21/19 Unknown History propranolol 80 mg capsule,24 80 mg PO DAILY 05/15/19 Unknown History hr,extended release azithromycin 250 mg tablet 250 mg PO DAILY 4 days #4 tabs 01/18/25 Unknown Rx (Zithromax) latanoprostene bunod 0.024 % eye 1 drp ophthalmic (eye) QHS 01/18/25 Unknown History drops (Vyzulta) levothyroxine 100 mcg tablet 100 mcg PO DAILY 01/18/25 Unknown History (Synthroid) ondansetron 4 mg disintegrating 4 mg PO Q8H PRN PRN Nausea #4 tabs 01/18/25 Unknown Rx tablet Allergy/AdvReac Type Severity Reaction Status Date / Time amoxicillin (From Augmentin) AdvReac Severe Yeast Verified 01/18/25 15:09 Infection atorvastatin (From Lipitor) AdvReac Severe Myalgias Verified 01/18/25 15:09 azithromycin (From Zithromax) AdvReac Severe GI Verified 01/18/25 15:09 clarithromycin (From Biaxin) AdvReac Severe GI upset Verified 01/18/25 15:09 clavulanic acid (From AdvReac Severe Yeast Verified 01/18/25 15:09 Augmentin) Infection levofloxacin (From Levaquin) AdvReac Severe Yeast Verified 01/18/25 15:09 infection NSAIDS (Non-Steroidal AdvReac Severe GI Verified 01/18/25 15:09 Anti-Inflamma codeine AdvReac Unknown Unknown Verified 01/18/25 15:09 diphenhydramine (From AdvReac Unknown Unknown Verified 01/18/25 15:09 Benadryl) doxycycline AdvReac Unknown Unknown Verified 01/18/25 15:09 meperidine (From Demerol) AdvReac Unknown Unknown Verified 01/18/25 15:09 nitrofurantoin (From AdvReac Unknown Unknown Verified 01/18/25 15:09 Macrobid) ofloxacin (From Floxin) AdvReac Unknown Unknown Verified 01/18/25 15:09 rofecoxib (From Vioxx) AdvReac Unknown Unknown Verified 01/18/25 15:09 sumatriptan (From Imitrex) AdvReac Unknown Unknown Verified 01/18/25 15:09 tramadol (From Ultram) AdvReac Unknown Unknown Verified 01/18/25 15:09 zolmitriptan (From Zomig) AdvReac Unknown Unknown Verified 01/18/25 15:09 Family History Father Heart disease Pacemaker Brother Pacemaker Surgical History (Updated 01/18/25 @ 15:32 by Leslee Kennedy) History of partial colectomy History of appendectomy History of hysterectomy History of tonsillectomy and adenoidectomy Social History (Updated 06/22/23 @ 14:04 by Charmaine Marquez) household members: spouse housing: house number of children: 2 current occupational status: retired Smoking Status: Former smoker how long ago did patient quit smokin years ago alcohol intake: never substance use type: does not use caffeine: No seatbelt use: always do you feel safe at home: Yes additional social history: -[employer]ant[employer]- Retired EXAM Physical Exam Const Vital Signs: 01/18/25 15:08 Temperature 97.9 F Temperature Source Temporal Pulse Rate 74 Respiratory Rate 15 Blood Pressure 132/48 H Blood Pressure Mean 76 Pulse Ox 98 Oxygen Delivery Method Room Air Positive well nourished and well developed General Appearance ED: well developed and NAD HEENT Reports TM's clear and moist mucous membranes normocephalic and atraumatic; Negative for trauma or tenderness Tympanic Membrane ED: Yes TM's clear Eyes PERRL and EOMs intact bilaterally General Eye ED: Negative for pale conjunctiva or scleral icterus Neck no lymphadenopathy, supple and no JVD General: Negative for tenderness Chest Wall inspection of chest normal and palpation of chest normal Chest: Negative for tenderness Resp normal respiratory effort and clear to auscultation bilaterally Effort and Inspection: Negative for respiratory distress or pain with movement Auscultation: Negative for rhonchi, wheezes or diminished lung sounds Cardio regular rate, regular rhythm, S1 normal heart sound, S2 normal heart sound and no murmurs Peripheral Pulses: pulses 2+ throughout GI normal to inspection, nondistended, normoactive bowel sounds, soft to palpation, non-tender, non-distended and no masses Back/Spine no CVA tenderness and no thoracic nor lumbar tenderness Extremity normal to inspection General Extremety ED: Negative for edema General Extremity: Negative for edema Neuro oriented x3, CN's II-XII intact bilaterally, no sensory deficits noted and gait normal Sensorium / Orientation: awake, alert, oriented to person, oriented to place and oriented to time Motor Exam: strength 5/5 throughout and strength abnormal Psych mental status grossly normal Skin no rashes or lesions noted and no wounds MDM MDM MDM Narrative Medical decision making narrative: Patient presents to the emergency department with cough that initially was productive and now nonproductive. She has had fever. Daughter also has been ill. Clinically looks well. COVID flu and RSV testing positive for influenza A. Patient also had a 1 view chest x-ray that shows a right lower lobe infiltrate. Discussed results with patient. She has had symptoms for more than 3 days therefore I do not feel she is a candidate for Tamiflu. Given findings on x-ray and the fact she has had some productive sputum at times will cover with Zithromax for possible bacterial pneumonia although I suspect these findings may be all consistent with influenza. Discharge Plan Triage Chief Complaint: Cough ED Provider: Debi Hernandes Dx/Rx/DC Orders Clinical Impression: Influenza A, Pneumonia Instructions: ED Influenza (Adult), ED Pneumonia (Adult) Prescriptions: New azithromycin [Zithromax] 250 mg tablet 250 mg PO DAILY 4 Days Qty: 4 0RF Rx Instructions: start on day 2 of therapy ondansetron 4 mg tablet,disintegrating 4 mg PO Q8H PRN PRN (Reason: Nausea) Qty: 4 0RF No Action clonazepam 0.5 mg tablet 0.5 mg PO QHS levothyroxine [Synthroid] 100 mcg tablet 100 mcg PO DAILY Vyzulta 0.024 % drops 1 drp ophthalmic (eye) QHS propranolol 80 mg capsule,extended release 24 hr 80 mg PO DAILY Primary Care Provider: Massimo Luna Referrals: Massimo Luna MD [Primary Care Provider] - 5-7 Days Print Language: Nicaraguan Disposition Disposition: Home, Self Care
[2025-01-18] MEDS: Azithromycin 250 MG Tablet 500 MG PO (16:30)
[2025-01-18] MEDS: Ondansetron ODT 4 MG Tablet PO (16:30)
[2025-01-18 16:31] VITALS: BP 125/66; PULSE 74; RESP 12; TEMP 37.2; O2SAT 100
== END 2025-01-18 16:32 | disposition home or self-care (01) ==
PROVIDERS: Emergency Provider Emergency Medicine; PCP Family Medicine; Visit Provider Emergency Medicine
DX: J10.00 Influenza due to other identified influenza virus with unspecified type of pneumonia (principal); Z87.891 Personal history of nicotine dependence; E78.00 Pure hypercholesterolemia, unspecified; R51.9 Headache, unspecified; E03.9 Hypothyroidism, unspecified; Z79.899 Other long term (current) drug therapy; Z79.890 Hormone replacement therapy; R50.9 Fever, unspecified
CPT/HCPCS: 71045; 87631; 99283

== ENCOUNTER → 2025-09-17 | Outpatient (CLI) | payer MEDICARE, OTHER, SELFPAY ==
[2025-09-17 10:25] LABS: Hematocrit 40.1 % (37-47); Hemoglobin 13.6 g/dL (12.0-15.0); Immature Granulocytes Count 0.040 X10^3/uL (0.0-0.0); Mean Corp Hgb Conc 33.9 g/dL (32-36); Mean Corpuscular Volume 93.0 fL (81-99); Mean Platelet Vol. 10.2 fl (6.2-12.0); NRBC Flagged by Analyzer 0 % (0-5); Platelet Count 328 K/mm3 (150-450); RBC Distribution Width CV 12.7 % (11.6-14.6); RBC Distribution Width SD 43.7 fl (35.1-43.9); Red Blood Count 4.31 M/mm3 (4.2-5.4); White Blood Count 8.9 K/mm3 (4.4-11.0)
[2025-09-17 11:05] LABS: AST(SGOT) 18 U/L (<=31); Alanine Aminotransfer ALT/SGPT 11 U/L (<=34); Albumin, Serum 4.1 g/dL (3.4-4.8); Alkaline Phosphatase 100 U/L (35-104); Anion Gap 11 (5-15); BUN 15 mg/dL (4-19); BUN/Creat Ratio 15.8 RATIO (10-20); Calcium,Total 9.7 mg/dL (7.6-11.0); Carbon Dioxide 22.9 mmol/L (21.0-32.0); Chloride 104 mmol/L (98-108); Cholesterol 280 mg/dL (<=200); Globulin 3.1 g/dL (2.2-4.2); Glucose 112 mg/dL (70-99); Low Density Lipoprotein Calc. 175 mg/dL; Potassium 4.5 mmol/L (3.3-5.1); Triglycerides 273 mg/dL; Very Low Density Lipoprotein 55 mg/dL (5-40); Vitamin D,25 Hydroxy 39.1 ng/mL (30-100); cholesterol:hdl ratio screen 5.30
== END | disposition home or self-care (01) ==
LOC: MFPLAB 08:55
PROVIDERS: PCP Family Medicine; Visit Provider Family Medicine
DX: R73.09 Other abnormal glucose (principal); E78.00 Pure hypercholesterolemia, unspecified; E55.9 Vitamin D deficiency, unspecified; E03.9 Hypothyroidism, unspecified
CPT/HCPCS: 36415; 80053; 80061; 82306; 83036; 84439; 84443; 85025